=== PATIENT | female | born 1930 | race Caucasian/White ===

== ENCOUNTER 2017-06-19 08:18 | Emergency (ER) | payer MEDICARE, BC ==
[2017-06-19 09:16] LABS: #Lymphocytes 1.3 thou/uL (1.20-3.40); #Monocytes 0.6 thou/uL (0.11-0.59); #Neutrophils 10.4 thou/uL (1.40-6.50); %Basophils 0.3 % (0.0-1.0); %Eosinophils 0.4 % (0.0-10.0); %Lymphocytes 10.6 % (21.0-51.0); %Monocytes 5.2 % (0.0-10.0); Hematocrit 31.2 % (36.0-47.0); Mean Platelet Volume 7.1 fL (7.4-10.4); Red Blood Cell (RBC) Count 3.49 mill/uL (4.20-5.40); White Blood Cell (WBC) Count 12.4 thou/uL (4.8-10.8)
[2017-06-19 09:37] LABS: Troponin I Less than 0.010 ng/mL (< 0.028)
[2017-06-19 09:39] LABS: ALT (SGPT) 9 U/L (8-55); AST (SGOT) 31 U/L (5-34); Alkaline Phosphatase 89 U/L (40-150); Anion Gap 14 mmol/L (10-20); BUN (Urea Nitrogen) 19 mg/dL (9.8-20.1); Bilirubin, Total 0.3 mg/dL (0.2-1.2); Calc. Creatinine Clearance 0 mL/min (70-130); Calcium 9.1 mg/dL (7.8-10.44); Carbon Dioxide 22 mmol/L (23-31); Chloride 105 mmol/L (98-107); Estimated GFR-MDRD 62; Globulin 3.4 g/dL (2.4-3.5); Protein, Total 6.7 g/dL (6.0-8.3)
[2017-06-19] MEDS ORDERED: Labetalol HCl 100 MG/20 ML VIAL ONE (09:46)
--- NOTE | 2017-06-19 10:07 | RAD ---
THREE VIEWS RIGHT SHOULDER: History: Fall, injury, pain. Comparison: None. FINDINGS: Comminuted, mildly displaced fracture involving the subcapital region of the proximal right humerus. Fracture fragments are noted. No definite dislocation of the glenohumeral joint space. Old right ri b fractures are noted. There may be some age indeterminate fracture involving the lateral aspect of the right chest. Dedicated chest radiographic is recommended. IMPRESSION: 1. Proximal humerous fracture. 2. Possible right rib fractures. POS: [facility]
[2017-06-19 10:40] LABS: Bilirubin Negative (Negative); Blood, Urine Negative (Negative); Glucose, Urine (Dipstick) Negative (Negative); Ketone, Urine Negative (Negative); Nitrite Negative (Negative); Protein, Urine (Dipstick) Negative (Neg-Trace); Urobilinogen 0.2 mg/dL (0.2-1.0)
--- NOTE | 2017-06-19 10:51 | RAD ---
SINGLE VIEW OF THE CHEST: Comparison: 11-21-16 History: Right sided shoulder pain after fall. Chest pain. FINDINGS: Single view of the chest shows an enlarged but stable cardiomediastinal silhouette. The pacemaker is unchanged in position. Atelectasis is seen in the left lung base. There is no evidence of consolida tion, mass, or pleural effusion. There also appear to be remote healed right rib fractures. IMPRESSION: No evidence of acute cardiopulmonary disease. POS: [facility]
== END 2017-06-19 10:33 | disposition home or self-care (01) ==
LOC: ERS 08:18
DX: S42.201A Unspecified fracture of upper end of right humerus, initial encounter for closed fracture (principal); S22.31XA Fracture of one rib, right side, initial encounter for closed fracture; I10 Essential (primary) hypertension; F32.9 Major depressive disorder, single episode, unspecified; Z79.899 Other long term (current) drug therapy; W17.89XA Other fall from one level to another, initial encounter; Y92.009 Unspecified place in unspecified non-institutional (private) residence as the place of occurrence of the external cause
CPT/HCPCS: 51701; 71010; 80053; 81003; 82553; 83880; 84484; 85025; 93005; A4353

== ENCOUNTER 2017-11-17 08:10 | Inpatient (IN) | payer MEDICARE, BC ==
--- NOTE | 2017-11-17 08:55 | RAD ---
FRONTAL VIEW CHEST: Date: 11/17/17 COMPARISON: Previous day. CLINICAL HISTORY: Weakness. History of viral URI. FINDINGS: There is enlargement of the cardiac silhouette. Retrocardiac density related to hiatal hernia is seen . There is vascular congestion and interstitial prominence of each lung indicating edema. No addition al significant interval change. IMPRESSION: CHF. POS: [facility]
[2017-11-17 09:05] LABS: #Basophils 0.1 thou/uL (0.0-0.2); #Monocytes 0.6 thou/uL (0.11-0.59); %Basophils 0.8 % (0.0-1.0); %Eosinophils 0.3 % (0.0-10.0); %Lymphocytes 14.7 % (21.0-51.0); %Monocytes 9.5 % (0.0-10.0); %Neutrophils 74.7 % (42.0-75.0); Hemoglobin 9.1 g/dL (12.0-16.0); MDiff Complete? YES; Mean Corpuscular HGB CONC 31.8 g/dL (32.0-36.0); Mean Corpuscular Hemoglobin 23.3 pg (27.0-31.0); Mean Corpuscular Volume 73.3 fl (81.0-99.0); Mean Platelet Volume 8.7 fL (7.4-10.4); Microcytosis SLIGHT = 6-15 cells (100X) (0-5/hpf); Platelet Count 237 thou/uL (130-400); Poikilocytosis SLIGHT = 6-15 cells (100X) (0-5/hpf); RBC Distribution Width 18.3 % (11.5-14.5); White Blood Cell (WBC) Count 6.7 thou/uL (4.8-10.8)
[2017-11-17 09:15] LABS: ALT (SGPT) 7 U/L (8-55); AST (SGOT) 18 U/L (5-34); Albumin 3.5 g/dL (3.4-4.8); Alkaline Phosphatase 78 U/L (40-150); Anion Gap 12 mmol/L (10-20); BUN (Urea Nitrogen) 19 mg/dL (9.8-20.1); Bilirubin, Total 0.3 mg/dL (0.2-1.2); Calc. Creatinine Clearance 0 mL/min (70-130); Carbon Dioxide 26 mmol/L (23-31); Chloride 99 mmol/L (98-107); Estimated GFR-MDRD 56; Globulin 2.9 g/dL (2.4-3.5); Glucose 113 mg/dL (83-110); Potassium 3.4 mmol/L (3.5-5.1); Protein, Total 6.4 g/dL (6.0-8.3); Sodium 134 mmol/L (136-145)
[2017-11-17 09:18] LABS: CKMB 0.3 ng/mL (0-6.6); Troponin I Less than 0.010 ng/mL (< 0.028)
[2017-11-17] MEDS ORDERED: Furosemide 40 MG/4 ML VIAL ONE (09:58)
[2017-11-17 11:49] LABS: Troponin I 0.023 ng/mL (< 0.028)
--- NOTE | 2017-11-17 11:55 | PDOC.FPRHP ---
- History of Present Illness Chief Complaint: cough, sob, low grade temperature History of Present Illness: 87 yo F w/ pmh of htn, hld, pacemaker placement, osteoporosis who presents with 2 day h/o of dry cough and low grade temperature per family. They report has developed a cough and "fever" with maximum noted to be 100.1. They deny nvdc, complaints of dysuria. They do describe occasional episodes of syncope vs unresponsiveness that last anywhere from 30-90seconds. Deny trauma. Pt denies cp , sob, congestion. She was seen the day prior in an urgent care and had a chest xray at that time which was negative. Nonetheless, she was prescribed doxycycline for pneumonia. On that visit she had no cxr evidence of pneumonia and no fever or white count. Today she has no cxr evidence of pneumonia and cxr report describes changes consistent with CHF. ED Course: Lasix 40, K+40mEq - Allergies/Adverse Reactions Allergies Allergy/AdvReac Type Severity Reaction Status Date / Time Sulfa (Sulfonamide Allergy Severe Hives Verified 11/20/16 14:58 Antibiotics) - Home Medications Medication Instructions Recorded Confirmed Type Carvedilol Phosphate [Coreg CR] 40 mg PO QAM 12/07/13 11/17/17 History Losartan Potassium 25 mg PO QAM 09/05/16 11/17/17 History Amitriptyline HCl [Elavil] 25 mg PO HS 11/05/16 11/17/17 History Aspirin [Aspirin Chewable Tablet] 81 mg PO QAM 11/05/16 11/17/17 History Calcium Carbonate [Calcium] 1,200 mg PO DAILY 11/05/16 11/17/17 History Multivit-Min/Iron/Folic/Lutein 1 tablet PO DAILY 11/05/16 11/17/17 History [Centrum Silver Women] buPROPion HCl 100 mg PO DAILY 11/17/17 11/17/17 History - History PMHx:Mixed hld, osteoporosis, htn, pacemaker PSHx: ORIF rt hip FHx:NA Social: Denies alcohol, tobacco and drug use - Review of Systems General: denies: fever/chills, fatigue ENT: denies: nasal congestion, rhinorrhea Respiratory: reports: cough. denies: congestion, shortness of breath Cardiovascular: reports: edema. denies: chest pain, palpitation Gastrointestinal: denies: nausea, vomiting, diarrhea, constipation, abdominal pain Genitourinary: denies: incontinence, dysuria Skin: denies: rashes Musculoskeletal: denies: pain, arthritis/arthralgias Neurological: reports: syncope. denies: numbness, weakness - Vital signs BP: 118/71 HR: 90 RR: 16-17 Tmax: 98.4 Pox: 98% on 2LNC Wt: 67Kg - Physical Exam Constitutional: NAD, well developed HEENT: normocephalic and atraumatic, PERRLA, EOMI, conjunctiva clear, grossly normal vision, grossly normal hearing, MMM Neck: supple, FROM, trachea midline Heart: RRR, normal S1/S2, no murmurs/rubs/gallops, pulses present, no edema Lungs: CTAB, no respiratory distress, good air movement, other (scattered rales) -Lungs: diminished bases Abdomen: soft, non-tender, bowel sounds present, no masses/distention, no hernias Musculoskeletal: normal structure, ROM grossly normal Neurological: no focal deficit, normal sensation Skin: no rash/lesions, capillary refill <2 seconds Heme/Lymphatic: no unusual bruising or bleeding, no purpura FMR H&P: Results - Labs Result Diagrams: 11/17/17 08:30 11/17/17 08:30 Lab results: WBC 6.7 thou/uL (4.8-10.8) 11/17/17 08:30 Hgb 9.1 g/dL (12.0-16.0) L 11/17/17 08:30 Hct 28.6 % (36.0-47.0) L 11/17/17 08:30 MCV 73.3 fl (81.0-99.0) L 11/17/17 08:30 Plt Count 237 thou/uL (130-400) 11/17/17 08:30 Neutrophils % 74.7 % (42.0-75.0) 11/17/17 08:30 Sodium 134 mmol/L (136-145) L 11/17/17 08:30 Potassium 3.4 mmol/L (3.5-5.1) L 11/17/17 08:30 Chloride 99 mmol/L (98-107) 11/17/17 08:30 Carbon Dioxide 26 mmol/L (23-31) 11/17/17 08:30 BUN 19 mg/dL (9.8-20.1) 11/17/17 08:30 Creatinine 0.94 mg/dL (0.6-1.1) 11/17/17 08:30 Glucose 113 mg/dL (83-110) H 11/17/17 08:30 Calcium 9.0 mg/dL (7.8-10.44) 11/17/17 08:30 Total Bilirubin 0.3 mg/dL (0.2-1.2) 11/17/17 08:30 AST 18 U/L (5-34) 11/17/17 08:30 ALT 7 U/L (8-55) L 11/17/17 08:30 Alkaline Phosphatase 78 U/L (40-150) 11/17/17 08:30 CK-MB (CK-2) 0.3 ng/mL (0-6.6) 11/17/17 08:30 B-Natriuretic Peptide 421.5 pg/mL (0-100) H 11/17/17 08:30 Serum Total Protein 6.4 g/dL (6.0-8.3) 11/17/17 08:30 Albumin 3.5 g/dL (3.4-4.8) 11/17/17 08:30 - EKG Interpretation EKG: sinus arrythmia, pvcs, rate 79, nonspecific st changes - Radiology Interpretation Chest x-ray Status: report reviewed by me Additional comment: imaging consistent with CHF changes FMR H&P: A/P - Problem List (1) Pulmonary edema Current Visit: Yes Status: Acute Code(s): J81.1 - CHRONIC PULMONARY EDEMA (2) Elevated brain natriuretic peptide (BNP) level Current Visit: Yes Status: Acute Code(s): R79.89 - OTHER SPECIFIED ABNORMAL FINDINGS OF BLOOD CHEMISTRY (3) HTN (hypertension) Current Visit: Yes Status: Acute Code(s): I10 - ESSENTIAL (PRIMARY) HYPERTENSION (4) Pre-syncope Current Visit: Yes Status: Acute (5) Bronchitis Current Visit: Yes Status: Acute Code(s): J40 - BRONCHITIS, NOT SPECIFIED ACUTE OR CHRONIC - Plan 1)Pulm edema: - admit tele -lasix 20mg BID IV -strict Is/Os -daily weights -in light of negative cxr, no white count, negative lactic acid and negative procalcitonin will treat for presumed volume overload/pulmonary edema. Additionally check Ur step and legionella ag -cont to monitor vitals, maintain sats >92%, O2 PRN 2)Elevated BNP -possibly 2/2 CHF, above prior levels of 200s, currently 420 with evidence of pulm edema -consider am cards consult -troponins negative 3)HTN: -home meds 4)Osteoporosis: -home meds 5)PPX: SCds and pepcid for dvt and GI ppx 6)Full code: pts daughter reports pt is full code. Discussed with family. 7) Bronchitis: -vs cough 2/2 CHF 8) Presyncopal vs syncope: -consider am cards consult -possibly 2/2 intravascular depletion - admit tele Disposition/LOS: stable>/= 2 days FMR H&P: Upper Level - Pertinent history 87yo CF with PMHx HTN, memory loss, and symptomatic bradycardia s/p pacemaker presented with 2 days nonproductive cough and low grade temperature elevations per family. Went to urgent care yesterday with normal CXR, and neg flu/strep swabs. Was given doxycycline for suspected bronchitis. This AM, pt seemed more weak than normal per family. Had difficulty standing up so prepared to take to ED when she had a 90 second episode on toilet where she was less responsive and sleepy. She was at baseline mentation on awakening. She has hx of syncopal episodes with workup finding severe bradycardia leading to pacemaker placement. In ED, CXR and elevated BNP suggested fluid overload so admitted for diuresis and evaluation. - Pertinent findings Gen: NAD, A&Ox2 Heart: RRR, normal S1/S2, no murmurs Lungs: diffuse coarse rales bilaterally with decreased breath sounds at bases, no rhonchi/wheezing, no increased WOB Abd: soft, NT/ND Ext: trace pedal edema BLE Skin: no rash, cap refill <2 secs Last ECHO 10/26 showing EF 50-55% with mildly dilated LA, mod TR, mild MR. - Plan Date/Time: 11/17/17 1151 1. Pulmonary edema. With elevated BNP (421) and sign of pulm edema, will repeat ECHO to reevaluate cardiac function. Last ECHO 10/26 showed EF 50-55% with mildly dilated LA, mod TR, mild MR. No proof of hypoxia although O2 91% at home. Pt denies symptoms although memory issues at baseline. Diuresis with Lasix and repeat ECHO in AM. Monitor BMPs. Pending ECHO results, consider cards consult. Admit to telemetry for likely 1-2 day stay. 2. Elevated BNP. See #1. 3. Acute bronchitis. Viral etiology likely. Family requesting continuation of abx in light of no fevers, neg CXR x2, and normal WBC count. Plan for procalcitonin, strep pneumo and legionella antigen, and lactate to better assess risk of bacterial etiology. If negative, plan to stop antibiotics. Discussed rationale with family who understood. 4. HTN. Home meds. Mildly elevated in ED although family states her normal in healthcare settings should be >200 systolic due to her white coat HTN so were worried about her overall picture. Monitor. 5. Syncopal episode. Sounds fairly consistent with vasovagal syncope although hx of arrhythmias and pacemaker placement may suggest further rhythm issues could be to blame. Will discuss more with family tomorrow about frequency of recent episodes to see if further evaluation needed. Pt appears overall intravascularly depleted which also supports less serious syncopal etiology. 6. Dysthymia. Continue amitriptyline and Wellbutrin. I, Giorgi Gutierrez, have evaluated this patient and agree with findings/plan as outlined by architecture internship resident. Pertinent changes/additions are listed here. Attending Addendum - Attending Addendum Date/Time: 11/17/17 6019 I personally evaluated the patient and discussed the management with Dr. Szymanski and Matt. I agree with and repeated the History, Examination, Assessment and Plan documented above with any addition or exceptions noted below. She did not endorse syncope for me. Orthostatics, echo if none recent, additional history in the AM.
[2017-11-17] MEDS ORDERED: Acetaminophen 325 MG TAB PO PRN (14:21)
[2017-11-17] MEDS ORDERED: Ondansetron ODT 4 MG TAB PO PRN (14:21)
[2017-11-17 15:50] LABS: Lactic Acid 0.9 mmol/L (0.5-2.2)
[2017-11-17 15:59] LABS: Troponin I Less than 0.010 ng/mL (< 0.028)
[2017-11-17] MEDS ORDERED: Potassium Chloride 20 MEQ TAB PO SCH (17:00)
[2017-11-17] MEDS ORDERED: Furosemide 20 MG/2 ML VIAL SLOW IVP SCH (17:00)
[2017-11-17 18:57] VITALS: BMI 23.4
[2017-11-17] MEDS ORDERED: Prevnar 13-Val Conj/PF 0.5 ML SYRINGE IM ONE (20:00)
[2017-11-17] MEDS: Famotidine 20 MG TAB PO SCH (21:54)
[2017-11-17] MEDS: Amitriptyline HCl 25 MG TAB PO SCH (21:54)
[2017-11-17] MEDS: Carvedilol 6.25 MG TAB PO SCH (21:54)
[2017-11-18 05:19] LABS: #Lymphocytes 1.5 thou/uL (1.20-3.40); #Monocytes 0.7 thou/uL (0.11-0.59); #Neutrophils 3.6 thou/uL (1.40-6.50); %Basophils 0.4 % (0.0-1.0); %Eosinophils 0.3 % (0.0-10.0); %Lymphocytes 25.3 % (21.0-51.0); %Monocytes 12.3 % (0.0-10.0); %Neutrophils 61.6 % (42.0-75.0); Hemoglobin 8.8 g/dL (12.0-16.0); Mean Corpuscular HGB CONC 31.6 g/dL (32.0-36.0); Mean Corpuscular Hemoglobin 23.3 pg (27.0-31.0); Mean Corpuscular Volume 73.8 fl (81.0-99.0); Platelet Count 218 thou/uL (130-400); RBC Distribution Width 18.4 % (11.5-14.5); Red Blood Cell (RBC) Count 3.78 mill/uL (4.20-5.40); White Blood Cell (WBC) Count 5.8 thou/uL (4.8-10.8)
[2017-11-18 05:41] LABS: Anion Gap 12 mmol/L (10-20); BUN (Urea Nitrogen) 23 mg/dL (9.8-20.1); Calc. Creatinine Clearance 39 mL/min (70-130); Calcium 8.8 mg/dL (7.8-10.44); Carbon Dioxide 28 mmol/L (23-31); Chloride 97 mmol/L (98-107); Estimated GFR-MDRD 52; Glucose 91 mg/dL (83-110); Potassium 3.6 mmol/L (3.5-5.1); Sodium 133 mmol/L (136-145)
--- NOTE | 2017-11-18 05:55 | PDOC.FM ---
- Subjective Subjective: Pt resting upon entering the room. Pt resting. Denies any acute events overnight. Denies any chest pain or SOB. Pt reports breathing doing well. Denies any fever or chills. - Objective Vital Signs & Weight: Vital Signs (12 hours) Temp Pulse Resp BP BP Pulse Ox 11/18/17 05:37 96 11/18/17 04:00 97.5 F L 67 20 161/74 H 11/18/17 00:00 98.9 F 76 18 145/69 H 97 11/17/17 21:54 182/84 H 11/17/17 20:08 98.7 F 89 18 182/84 H 97 Weight Weight 63.503 kg I&O: 11/16/17 11/17/17 11/18/17 06:59 06:59 06:59 Output Total 1500 Balance -1500 Result Diagrams: 11/18/17 04:58 11/18/17 04:58 EKG Reviewed by me: Yes Radiology Reviewed by me: Yes (CHF) <Nash Benavidez - Last Filed: 11/18/17 08:14> - Objective Vital Signs & Weight: Vital Signs (12 hours) Temp Pulse Resp BP BP Pulse Ox 11/18/17 16:01 97.1 F L 70 18 118/62 99 11/18/17 14:10 73 129/65 11/18/17 11:00 97.9 F 68 18 187/87 H 97 11/18/17 08:57 173/131 H 11/18/17 07:28 96.4 F L 70 22 H 173/131 H 100 Weight Weight 63.503 kg I&O: 11/17/17 11/18/17 11/19/17 06:59 06:59 06:59 Intake Total 220 Output Total 1500 Balance -1280 Result Diagrams: 11/18/17 04:58 11/18/17 04:58 <Renetta Jeter - Last Filed: 11/18/17 18:48> Phys Exam - Physical Examination Constitutional: NAD HEENT: PERRLA, moist MMs Neck: no nodes, no JVD, supple, full ROM scattered rhonchi, goot air movement Cardiovascular: RRR, no significant murmur, no rub Gastrointestinal: soft, non-tender, no distention, positive bowel sounds Musculoskeletal: edema present trace edema Neurological: normal sensation, moves all 4 limbs Lymphatic: no nodes Psychiatric: normal affect Skin: no rash, normal turgor, cap refill <2 seconds <Nash Benavidez - Last Filed: 11/18/17 08:14> Dx/Plan (1) Bronchitis Code(s): J40 - BRONCHITIS, NOT SPECIFIED ACUTE OR CHRONIC Status: Acute (2) Elevated brain natriuretic peptide (BNP) level Code(s): R79.89 - OTHER SPECIFIED ABNORMAL FINDINGS OF BLOOD CHEMISTRY Status : Acute (3) HTN (hypertension) Code(s): I10 - ESSENTIAL (PRIMARY) HYPERTENSION Status: Acute (4) Pulmonary edema Code(s): J81.1 - CHRONIC PULMONARY EDEMA Status: Acute (5) Diastolic CHF, chronic Code(s): I50.32 - CHRONIC DIASTOLIC (CONGESTIVE) HEART FAILURE Status: Acute (6) Essential (primary) hypertension Code(s): I10 - ESSENTIAL (PRIMARY) HYPERTENSION Status: Acute (7) Hyperlipidemia Code(s): E78.5 - HYPERLIPIDEMIA, UNSPECIFIED Status: Acute (8) Microcytic anemia Code(s): D50.9 - IRON DEFICIENCY ANEMIA, UNSPECIFIED Status: Acute - Plan Plan: 1)Pulm edema: -lasix 20mg BID IV -strict Is/Os -daily weights -in light of negative cxr, no white count, negative lactic acid and negative procalcitonin will treat for presumed volume overload/pulmonary edema. Additionally check Ur step and legionella ag -cont to monitor vitals, maintain sats >92%, O2 PRN 2)Elevated BNP -possibly 2/2 CHF, above prior levels of 200s, currently 420 with evidence of pulm edema -troponins negative 3)HTN: -home meds -BP stable. Continue to monitor and adjust as needed 4)Osteoporosis: -home meds 5)PPX: SCds and pepcid for dvt and GI ppx 6)Full code: pts daughter reports pt is full code. Discussed with family. 7) Bronchitis: -vs cough 2/2 CHF -supportive care 8) Presyncopal vs syncope: -consider am cards consult -possibly 2/2 intravascular depletion -Has microcytic anemia, will check iron panel at this time 9) Microcytic anemia -Will check iron panel this am. Hgb 8.8 and MCV low -Iron low, will start replacement today <Nash Benavidez - Last Filed: 11/18/17 08:14> Attending Addendum - Attending Addendum Date/Time: 11/18/17 184 I personally evaluated the patient and discussed the management with Dr. Benavidez. I agree with the History, Examination, Assessment and Plan documented above with any addition or exceptions noted below. The patient clinically appears to have pulmonary edema likley from chf exac. Echo is pending. Continue lasix. Iron low, will start replacement. Adjusting bowel regimen. <Renetta Jeter - Last Filed: 11/18/17 18:48>
[2017-11-18] MEDS: Furosemide 20 MG/2 ML VIAL SLOW IVP SCH ×2 (06:18→14:10)
[2017-11-18 06:42] LABS: Iron 15 ug/dL (50-170); Iron Binding Capacity, Total 315 mcg/dL (265-497)
[2017-11-18] MEDS: Carvedilol 6.25 MG TAB PO SCH ×2 (08:57→21:02)
[2017-11-18] MEDS: Famotidine 20 MG TAB PO SCH (08:58)
[2017-11-18] MEDS: Losartan 25 MG TAB PO SCH (08:58)
[2017-11-18] MEDS: Ferrous Sulfate 325 MG TAB PO SCH ×2 (08:58→09:08)
[2017-11-18] MEDS: Calcium Carbonate 600 MG TAB PO SCH (08:58)
[2017-11-18] MEDS: Multivit, Therapeutic 1 TAB PO SCH (08:59)
[2017-11-18] MEDS: buPROPion HCl 100 MG TAB PO SCH (09:03)
[2017-11-18] MEDS ORDERED: Labetalol HCl 100 MG/20 ML VIAL SLOW IVP PRN (13:10)
[2017-11-18 15:40] LABS: Legionella Urinary Ag Negative (Negative); Strep pneumo Urine Ag NEGATIVE (NEGATIVE)
[2017-11-18] MEDS: Amitriptyline HCl 25 MG TAB PO SCH (21:02)
--- NOTE | 2017-11-19 00:22 | CON ---
DATE OF CONSULTATION: 11/18/2017 HISTORY: Malou Lipscomb is an 87-year-old white female, patient of Dr. Huynh. In 11/2016, she underwent pacemaker placement after LINQ implantable loop recorder revealed 5 seconds of asystole. She now presented to the emergency room complaining of cough for 2 days, low-grade temperature. Now, she also stated that she continued to have unresponsive episodes that last anywhere from 30-90 seconds. Ms. Lipscomb is unable to give me any specific history in regard to this, but she thinks she may have had a spell when she was on the commode today. She denies any chest discomfort or shortness of breath. PAST MEDICAL HISTORY: Hypertension, sick-sinus syndrome, pacemaker placement. OPERATIONS: ORIF of the right hip. MEDICATIONS: Carvedilol 40 q.a.m., losartan 25 q.a.m., amitriptyline 25 at bedtime, aspirin 81 daily, calcium carbonate 1200 mg daily, multivitamin, and bupropion 100 mg daily. ALLERGIES: SULFA. SOCIAL HISTORY: She does not smoke or drink. REVIEW OF SYSTEMS: Twelve-point review of systems, otherwise unremarkable. PHYSICAL EXAMINATION: VITAL SIGNS: 140/67, pulse is 70. HEENT: PERRL. NECK: Supple. CHEST: Clear. CARDIAC: S1, S2 normal without any S3, S4 or murmurs. ABDOMEN: Normal bowel sounds without tenderness or organomegaly. EXTREMITIES: Revealed no clubbing, cyanosis, or edema. NEUROLOGIC: Grossly intact. LABORATORY DATA: EKG reveals sinus rhythm with sinus arrhythmia. Chest x-ray reveals continued good placement of pacemaker leads and cardiomegaly and hiatal hernia. Hemoglobin 8.8, hematocrit 27.9, white count 5800, platelets 218,000. Sodium 133, potassium 3.6, chloride 97, carbon dioxide 28, BUN 23, creatinine 1.00. Cardiac enzymes were unremarkable. BNP 421.5. IMPRESSION: 1. Questionable episodes of unresponsiveness versus syncope at home. 2. Hypertension. 3. History of paroxysmal atrial fibrillation. 4. Pacemaker placement. PLAN: I have contacted [employer] to interrogate the device to make sure there was normal function as well as that she has not been having episodes of atrial fibrillation. Dr. Huynh resume her care in the morning. [facility]
[2017-11-19] MEDS: Furosemide 20 MG/2 ML VIAL SLOW IVP SCH (05:38)
[2017-11-19 05:48] LABS: #Eosinphils 0.2 thou/uL (0.0-0.7); #Lymphocytes 1.5 thou/uL (1.20-3.40); #Monocytes 0.6 thou/uL (0.11-0.59); #Neutrophils 3.8 thou/uL (1.40-6.50); %Basophils 0.6 % (0.0-1.0); %Eosinophils 3.3 % (0.0-10.0); %Lymphocytes 24.1 % (21.0-51.0); %Monocytes 10.4 % (0.0-10.0); %Neutrophils 61.6 % (42.0-75.0); Hemoglobin 8.9 g/dL (12.0-16.0); Mean Corpuscular HGB CONC 31.6 g/dL (32.0-36.0); Mean Corpuscular Hemoglobin 23.3 pg (27.0-31.0); Mean Corpuscular Volume 73.7 fl (81.0-99.0); Mean Platelet Volume 8.6 fL (7.4-10.4); Platelet Count 229 thou/uL (130-400); Red Blood Cell (RBC) Count 3.81 mill/uL (4.20-5.40); White Blood Cell (WBC) Count 6.2 thou/uL (4.8-10.8)
[2017-11-19 05:57] LABS: Anion Gap 8 mmol/L (10-20); BUN (Urea Nitrogen) 29 mg/dL (9.8-20.1); Calc. Creatinine Clearance 35 mL/min (70-130); Calcium 9.2 mg/dL (7.8-10.44); Carbon Dioxide 31 mmol/L (23-31); Chloride 97 mmol/L (98-107); Estimated GFR-MDRD 47; Glucose 84 mg/dL (83-110); Potassium 3.6 mmol/L (3.5-5.1); Sodium 132 mmol/L (136-145)
--- NOTE | 2017-11-19 06:39 | PDOC.FM ---
- Subjective Subjective: Pt reports doing well this morning. Denies any fever or chills. Denies any SOB. Denies any urinary symptoms or having abdominal pain like she wasn't emptying her bladder. Denies any acute events overnight. Pt reports pain being well controlled. No other concerns or complaints at this time. - Objective MAR Reviewed: Yes Vital Signs & Weight: Vital Signs (12 hours) Temp Pulse Resp BP BP Pulse Ox 11/19/17 04:00 97.0 F L 66 16 108/55 L 98 11/18/17 21:02 140/67 11/18/17 20:00 97.9 F 69 18 Weight Weight 63.503 kg I&O: 11/17/17 11/18/17 11/19/17 06:59 06:59 06:59 Intake Total 220 600 Output Total 1500 4811 Balance -1280 4211 Result Diagrams: 11/19/17 05:35 11/19/17 05:35 EKG Reviewed by me: Yes Radiology Reviewed by me: Yes Radiology: ECHO showed EF 50-55%. Diastolic Dysfunction <Nash Benavidez - Last Filed: 11/19/17 08:24> - Objective Vital Signs & Weight: Vital Signs (12 hours) Pulse BP 11/19/17 16:51 72 115/67 11/19/17 14:42 74 132/61 Result Diagrams: 11/19/17 05:35 11/19/17 05:35 <Renetta Jeter - Last Filed: 11/19/17 18:04> Phys Exam - Physical Examination Constitutional: NAD HEENT: PERRLA, moist MMs Neck: no nodes, no JVD, supple, full ROM Respiratory: no wheezing, no rhonchi, clear to auscultation bilateral Cardiovascular: RRR, no significant murmur Gastrointestinal: soft, non-tender, no distention, positive bowel sounds Musculoskeletal: no edema, pulses present Neurological: non-focal, normal sensation Lymphatic: no nodes Psychiatric: normal affect Skin: no rash, normal turgor, cap refill <2 seconds <Nash Benavidez - Last Filed: 11/19/17 08:24> Dx/Plan (1) Bronchitis Code(s): J40 - BRONCHITIS, NOT SPECIFIED ACUTE OR CHRONIC Status: Acute (2) Elevated brain natriuretic peptide (BNP) level Code(s): R79.89 - OTHER SPECIFIED ABNORMAL FINDINGS OF BLOOD CHEMISTRY Status : Acute (3) HTN (hypertension) Code(s): I10 - ESSENTIAL (PRIMARY) HYPERTENSION Status: Acute (4) Pulmonary edema Code(s): J81.1 - CHRONIC PULMONARY EDEMA Status: Acute (5) Diastolic CHF, chronic Code(s): I50.32 - CHRONIC DIASTOLIC (CONGESTIVE) HEART FAILURE Status: Acute (6) Essential (primary) hypertension Code(s): I10 - ESSENTIAL (PRIMARY) HYPERTENSION Status: Acute (7) Hyperlipidemia Code(s): E78.5 - HYPERLIPIDEMIA, UNSPECIFIED Status: Acute (8) Microcytic anemia Code(s): D50.9 - IRON DEFICIENCY ANEMIA, UNSPECIFIED Status: Acute - Plan Plan: 1)Pulm edema: -lasix 20mg BID IV, may switch to oral today. -strict Is/Os -daily weights -in light of negative cxr, no white count, negative lactic acid and negative procalcitonin will treat for presumed volume overload/pulmonary edema. Ur strep/ legionella negative -cont to monitor vitals, maintain sats >92%, O2 PRN. Will wean off oxygen. O2 sats been stable. Home O2 assessment. 2)Elevated BNP -possibly 2/2 CHF, above prior levels of 200s, currently 420 with evidence of pulm edema -troponins negative -Cardiology consulted-Dr. Huynh- Will follow recommendations -ECHO shows preserved EF with I/III diastolic dysfunction. will want to transition to oral lasix -Fluid restriction 3)HTN: -home meds -BP stable. Continue to monitor and adjust as needed 4)Osteoporosis: -home meds 5)PPX: SCds and pepcid for dvt and GI ppx 6)Full code: pts daughter reports pt is full code. Discussed with family. 7) Bronchitis: -vs cough 2/2 CHF -supportive care 8) Presyncopal vs syncope: -possibly 2/2 intravascular depletion -Has iron defecient microcytic anemia, replacing iron. Possibly cause -Cardiology is going to assess pacemaker, no sign of arrythmia 9) Microcytic anemia Hgb 8.9 and MCV low -Iron low,replacing at this time. -Miralax for constipation side effect <Nash Benavidez - Last Filed: 11/19/17 08:24> Attending Addendum - Attending Addendum Date/Time: 11/19/171801 I personally evaluated the patient and discussed the management with Dr. Benavidez. I agree with the History, Examination, Assessment and Plan documented above with any addition or exceptions noted below. The patient became hypotensive this morning during our rounds with systolics in the 70's. Pt was placed in trendelenberg. We are giving a 500 ml bolus and will reassess for more fluid if needed. She is awake and responding to questions appropriately. There have been no changes in her bp meds. She did receive lasix this morning but other meds were held. She also has new urinary retention. Will stop amitriptyline to see if this helps. <Renetta Jeter - Last Filed: 11/19/17 18:04>
[2017-11-19] MEDS ORDERED: Ferrous Sulfate 325 MG TAB PO SCH (08:00)
[2017-11-19] MEDS ORDERED: CALCIUM CARBONATE PO SCH (09:00)
[2017-11-19] MEDS: buPROPion HCl 100 MG TAB PO SCH (09:27)
[2017-11-19] MEDS: Calcium Carbonate 600 MG TAB PO SCH (09:27)
[2017-11-19] MEDS: Multivit, Therapeutic 1 TAB PO SCH (09:27)
[2017-11-19] MEDS: Ferrous Sulfate 325 MG TAB PO SCH (09:29)
[2017-11-19] MEDS: Calcium Carbonate 500 MG ChewTAB PO SCH (09:29)
[2017-11-19] MEDS: Polyethylene Glycol 3350 17 GM Packet PO SCH (09:31)
[2017-11-19] MEDS: Carvedilol 6.25 MG TAB PO SCH ×2 (09:57→21:51)
[2017-11-19] MEDS: Losartan 25 MG TAB PO SCH (09:57)
[2017-11-19] MEDS: Famotidine 20 MG TAB PO SCH (10:32)
[2017-11-19] MEDS ORDERED: Sodium Chloride 0.9% 500 ML IVPB SCH (11:45)
--- NOTE | 2017-11-19 13:21 | PDOC.CTH ---
<Eleni Machado - Last Filed: 11/19/17 13:19> Cardiology Progress Note - Subjective The pt seen and examined. No overnight events. No cardiac complaints. She is very lethargic, but alarted and oriented x3. - Objective Vital Signs Temp Pulse Resp BP Pulse Ox 11/19/17 11:15 98.7 F 66 17 128/60 96 11/19/17 08:00 97.4 F L 68 17 11/19/17 07:36 97.4 F L 68 17 114/60 92 L 11/19/17 04:00 97.0 F L 66 16 108/55 L 98 Weight 140 lb 11/18/17 11/19/17 11/20/17 06:59 06:59 06:59 Intake Total 220 600 Output Total 1500 4811 Balance -8680 -6801 - Physical Examination General/Neuro: alert & oriented x3 Neck: no JVD present Lungs: CTA (diminished at bases) Heart: RRR Abdomen: soft Extremities: other: (No edema) - Telemetry Telemetry Rhythm: SR - Labs Result Diagrams: 11/19/17 05:35 11/19/17 05:35 Troponin/CKMB CK-MB (CK-2) 0.3 ng/mL (0-6.6) 11/17/17 08:30 Troponin I Less than 0.010 ng/mL (< 0.028) 11/17/17 15:22 - Assessment/Plan 1. Hx of Syncopal episodes - PM interrogation showed no arrhythmias or pulses. 2. Acute on Chronic diastolic HF - Echo on 11/18/17 showed EF 50-55%, grade I diastolic dysfunction, trace MR, mild AR, and mild-mod TR. 3. Hypotension - BP was down to 70s this AM. Lasix is on hold and NS fluid bolus was given to the pt this AM. 4. Paroxysmal AFib - Remains in SR. On BBlocker and ASA 81mg qd; Cont. to monitor 5. Hx of PM - PM interrogation showed normal with no arrhythmias. 6. amenia - On Iron supplement; managed by PCP MARY ANN reviewed Review of Systems - Review of Systems Constitutional: reports: no symptoms reported EENTM: reports: no symptoms reported Respiratory: reports: no symptoms reported Cardiac (ROS): reports: no symptoms reported ABD/GI: reports: no symptoms reported : reports: no symptoms reported <Dipak Huynh - Last Filed: 11/19/17 17:39> Cardiology Progress Note - Objective Vital Signs Pulse BP 11/19/17 16:51 72 115/67 11/19/17 14:42 74 132/61 - Labs Result Diagrams: 11/19/17 05:35 11/19/17 05:35 Troponin/CKMB CK-MB (CK-2) 0.3 ng/mL (0-6.6) 11/17/17 08:30 Troponin I Less than 0.010 ng/mL (< 0.028) 11/17/17 15:22 - Assessment/Plan Pt. seen and eval. by me. I agree with the A/P by the FELLMONGERY WORKER. She is likely overdiuresed at this time. I suspect that she has orthostatic problems at home. The EF is WNL and the diastolic dysfunction is mild. Hold diuretics. Bronchitis is present , suggest repeat CXR. Hopefully home in 1-2 days.
[2017-11-19] MEDS: Amitriptyline HCl 25 MG TAB PO SCH ×2 (21:53→22:00)
[2017-11-20] MEDS ORDERED: hydrALAZINE 20 MG/ML VIAL SLOW IVP PRN (01:27)
[2017-11-20 06:04] LABS: #Eosinphils 0.1 thou/uL (0.0-0.7); #Lymphocytes 1.9 thou/uL (1.20-3.40); #Monocytes 0.7 thou/uL (0.11-0.59); #Neutrophils 3.9 thou/uL (1.40-6.50); %Basophils 0.3 % (0.0-1.0); %Eosinophils 1.4 % (0.0-10.0); %Lymphocytes 28.2 % (21.0-51.0); %Monocytes 10.2 % (0.0-10.0); Hemoglobin 8.2 g/dL (12.0-16.0); Mean Corpuscular HGB CONC 30.9 g/dL (32.0-36.0); Mean Corpuscular Hemoglobin 22.9 pg (27.0-31.0); Mean Corpuscular Volume 74.1 fl (81.0-99.0); Mean Platelet Volume 8.7 fL (7.4-10.4); Platelet Count 232 thou/uL (130-400); RBC Distribution Width 17.9 % (11.5-14.5); Red Blood Cell (RBC) Count 3.58 mill/uL (4.20-5.40); White Blood Cell (WBC) Count 6.6 thou/uL (4.8-10.8)
[2017-11-20 06:28] LABS: Anion Gap 11 mmol/L (10-20); BUN (Urea Nitrogen) 27 mg/dL (9.8-20.1); Calc. Creatinine Clearance 39 mL/min (70-130); Calcium 9.2 mg/dL (7.8-10.44); Carbon Dioxide 30 mmol/L (23-31); Chloride 98 mmol/L (98-107); Estimated GFR-MDRD 52; Glucose 84 mg/dL (83-110); Potassium 3.3 mmol/L (3.5-5.1); Sodium 136 mmol/L (136-145)
--- NOTE | 2017-11-20 08:26 | PDOC.FM ---
- Subjective Subjective: Pt sleeping upon entering the room. Denies any acute events overnight. Denies any SOB or chest pain. Denies any problems at this time. Denies any dizziness or lightheadness. No other concerns at this time. She did not have oxygen on and checked her o2 sat and was 95% on RA. - Objective MAR Reviewed: Yes Vital Signs & Weight: Vital Signs (12 hours) Temp Pulse Resp BP Pulse Ox 11/20/17 04:00 98.1 F 63 18 117/64 95 11/20/17 00:00 62 18 135/61 Weight Weight 63.503 kg I&O: 11/19/17 11/20/17 11/21/17 06:59 06:59 06:59 Intake Total 1960 Output Total 1420 Balance 540 Result Diagrams: 11/20/17 04:54 11/20/17 04:53 Radiology Reviewed by me: Yes <Nash Benavidez - Last Filed: 11/20/17 08:24> - Objective Vital Signs & Weight: Vital Signs (12 hours) Temp Pulse Resp BP Pulse Ox 11/20/17 09:32 98.3 F 66 16 96 11/20/17 09:31 98.3 F 66 16 154/70 H 96 11/20/17 04:00 98.1 F 63 18 117/64 95 Weight Weight 63.503 kg I&O: 11/19/17 11/20/17 11/21/17 06:59 06:59 06:59 Intake Total 1960 240 Output Total 1420 500 Balance 540 -260 Result Diagrams: 11/20/17 04:54 11/20/17 04:53 <Renetta Jeter - Last Filed: 11/20/17 14:34> Phys Exam - Physical Examination Constitutional: NAD HEENT: PERRLA, moist MMs Neck: no nodes, no JVD some decreased breath sounds and mild rales noted Cardiovascular: RRR Gastrointestinal: soft, non-tender, no distention, positive bowel sounds Musculoskeletal: no edema, pulses present Neurological: non-focal, normal sensation Lymphatic: no nodes Psychiatric: normal affect Skin: no rash, normal turgor, cap refill <2 seconds <Nash Benavidez - Last Filed: 11/20/17 08:24> Dx/Plan (1) Bronchitis Code(s): J40 - BRONCHITIS, NOT SPECIFIED ACUTE OR CHRONIC Status: Acute (2) Elevated brain natriuretic peptide (BNP) level Code(s): R79.89 - OTHER SPECIFIED ABNORMAL FINDINGS OF BLOOD CHEMISTRY Status : Acute (3) HTN (hypertension) Code(s): I10 - ESSENTIAL (PRIMARY) HYPERTENSION Status: Acute (4) Pulmonary edema Code(s): J81.1 - CHRONIC PULMONARY EDEMA Status: Acute (5) Diastolic CHF, chronic Code(s): I50.32 - CHRONIC DIASTOLIC (CONGESTIVE) HEART FAILURE Status: Acute (6) Essential (primary) hypertension Code(s): I10 - ESSENTIAL (PRIMARY) HYPERTENSION Status: Acute (7) Hyperlipidemia Code(s): E78.5 - HYPERLIPIDEMIA, UNSPECIFIED Status: Acute (8) Microcytic anemia Code(s): D50.9 - IRON DEFICIENCY ANEMIA, UNSPECIFIED Status: Acute (9) Physical deconditioning Code(s): R53.81 - OTHER MALAISE Status: Acute - Plan Plan: 1)Pulm edema: -will switch to oral lasix 20 mg once daily. will monitor to lowering of BP -strict Is/Os -daily weights -in light of negative cxr, no white count, negative lactic acid and negative procalcitonin will treat for presumed volume overload/pulmonary edema. Ur strep/ legionella negative -cont to monitor vitals, maintain sats >92%, O2 PRN. Will wean off oxygen. O2 sats been stable. Home O2 assessment. 2)Elevated BNP - 2/2 CHF, above prior levels of 200s, currently 420 with evidence of pulm edema -troponins negative -Cardiology consulted-Dr. Huynh- Will follow recommendations -ECHO shows preserved EF with I/III diastolic dysfunction. will want to transition to oral lasix -Fluid restriction 3)HTN: -Yesterday got hypotensive and required a liter bolus. will hold home bp medications for now until bp comes up. Will continue diuresis with oral lasix. Continue to monitor and adjust as needed 4)Osteoporosis: -home meds 5)PPX: SCds and pepcid for dvt and GI ppx 6)Full code: pts daughter reports pt is full code. Discussed with family. 7) Bronchitis: -vs cough 2/2 CHF -supportive care 8) Presyncopal vs syncope: -possibly 2/2 intravascular depletion -Has iron defecient microcytic anemia, replacing iron. Possibly cause -Pacemaker functioning appropriately 9) Microcytic anemia Hgb 8.2and MCV low. Hgb lowering at this time. Will possibly check FOBT. -Iron low,replacing at this time. May need to increase to BID dose. Concern for constipation per family though. -Miralax for constipation side effect 10)Deconditioning -Pt been in bed and not moving around much -PT/OT consulted -Rehab screen pending <Nash Benavidez - Last Filed: 11/20/17 08:24> Attending Addendum - Attending Addendum Date/Time: 11/20/17 3592 I personally evaluated the patient and discussed the management with Dr. Benavidez. I agree with the History, Examination, Assessment and Plan documented above with any addition or exceptions noted below. Patient has been weaned off O2. Transitioning to po lasix today. BP meds still being held. She is alert and oriented x 3 during my exam. Still no signs of infection. Inpt rehab screen placed. Will try to get pt up to a chair. <Renetta Jeter - Last Filed: 11/20/17 14:34>
[2017-11-20] MEDS ORDERED: Furosemide 20 MG TAB PO SCH ×2 (09:00→20:25)
[2017-11-20] MEDS: Calcium Carbonate 500 MG ChewTAB PO SCH (09:37)
[2017-11-20] MEDS: Calcium Carbonate 600 MG TAB PO SCH (09:38)
[2017-11-20] MEDS: buPROPion HCl 100 MG TAB PO SCH (09:38)
[2017-11-20] MEDS: Multivit, Therapeutic 1 TAB PO SCH (09:38)
[2017-11-20] MEDS: Famotidine 20 MG TAB PO SCH (09:38)
[2017-11-20] MEDS: Polyethylene Glycol 3350 17 GM Packet PO SCH (09:40)
[2017-11-20] MEDS: Ferrous Sulfate 325 MG TAB PO SCH (09:40)
[2017-11-20] MEDS ORDERED: Potassium Chloride 20 MEQ TAB PO SCH (11:30)
--- NOTE | 2017-11-20 20:30 | PDOC.CTH ---
Cardiology Progress Note - Objective Vital Signs Temp Pulse Pulse Pulse Resp BP BP 11/20/17 16:20 98.2 F 74 15 11/20/17 13:24 81 75 111/55 L 131/64 11/20/17 09:32 98.3 F 66 16 11/20/17 09:31 98.3 F 66 16 BP BP BP BP Pulse Ox 11/20/17 16:20 143/64 H 160/76 H 123/53 L 138/63 94 L 11/20/17 13:24 11/20/17 09:32 96 11/20/17 09:31 154/70 H 96 Weight 140 lb 11/19/17 11/20/17 11/21/17 06:59 06:59 06:59 Intake Total 1960 1440 Output Total 1420 950 Balance 540 490 - Physical Examination General/Neuro: alert & oriented x3 Neck: no JVD present Lungs: other: (coase rhonchi bilat.) Heart: RRR Abdomen: soft - Labs Result Diagrams: 11/20/17 04:54 11/20/17 04:53 Troponin/CKMB CK-MB (CK-2) 0.3 ng/mL (0-6.6) 11/17/17 08:30 Troponin I Less than 0.010 ng/mL (< 0.028) 11/17/17 15:22 - Assessment/Plan 1. Hx of Syncopal episodes - PM interrogation showed no arrhythmias or pulses. 2. Acute on Chronic diastolic HF - Echo on 11/18/17 showed EF 50-55%, grade I diastolic dysfunction, trace MR, mild AR, and mild-mod TR. 3. Hypotension - BP was down to 70s yesterday. Improved today after holding diuretics.. Lasix is on hold and NS fluid bolus was given to the pt yesterday. 4. Paroxysmal AFib - Remains in SR. On BBlocker and ASA 81mg qd; Cont. to monitor 5. Hx of PM - PM interrogation showed normal with no arrhythmias. 6. amenia - On Iron supplement; managed by PCP 7. Bronchitis. The BNP was elevated but I would suspect that with diastolic dysfunction. She may be getting back to her baseline vol. status.
[2017-11-21 07:55] LABS: #Eosinphils 0.1 thou/uL (0.0-0.7); #Lymphocytes 1.6 thou/uL (1.20-3.40); #Monocytes 0.6 thou/uL (0.11-0.59); #Neutrophils 3.8 thou/uL (1.40-6.50); %Basophils 0.4 % (0.0-1.0); %Eosinophils 1.7 % (0.0-10.0); %Lymphocytes 26.6 % (21.0-51.0); %Monocytes 10.2 % (0.0-10.0); %Neutrophils 61.1 % (42.0-75.0); Hemoglobin 8.9 g/dL (12.0-16.0); Mean Corpuscular HGB CONC 30.3 g/dL (32.0-36.0); Mean Corpuscular Hemoglobin 23.6 pg (27.0-31.0); Mean Corpuscular Volume 77.7 fl (81.0-99.0); Mean Platelet Volume 8.7 fL (7.4-10.4); Platelet Count 265 thou/uL (130-400); RBC Distribution Width 18.1 % (11.5-14.5); Red Blood Cell (RBC) Count 3.76 mill/uL (4.20-5.40); White Blood Cell (WBC) Count 6.1 thou/uL (4.8-10.8)
[2017-11-21 08:00] LABS: Anion Gap 13 mmol/L (10-20); BUN (Urea Nitrogen) 17 mg/dL (9.8-20.1); Calc. Creatinine Clearance 47 mL/min (70-130); Calcium 9.2 mg/dL (7.8-10.44); Carbon Dioxide 25 mmol/L (23-31); Chloride 103 mmol/L (98-107); Estimated GFR-MDRD 66; Glucose 82 mg/dL (83-110); Potassium 4.5 mmol/L (3.5-5.1); Sodium 136 mmol/L (136-145)
--- NOTE | 2017-11-21 08:21 | RAD ---
SINGLE VIEW OF THE CHEST: COMPARISON: 11/17/17. HISTORY: CHF. FINDINGS: A single view of the chest shows an enlarged but stable cardiomediastinal silhouette. The pacemaker is unchanged in position. Increased interstitial lung markings are present. There is no evidence of consolidation, mass, or pleural effusion. Degenerative changes are seen in the spine. IMPRESSION: 1. No evidence of acute cardiopulmonary disease. 2. Cardiomegaly. POS: PAUL
--- NOTE | 2017-11-21 08:25 | PDOC.FM ---
- Subjective Subjective: Pt resting and sleeping when entering the room. Denies any pain. Reports doing fine. Denies any chest pain or SOB. Denies any acute events overnight. A&Ox3. Pt sat 95 percent on RA. No other concerns or complaints at this time - Objective MAR Reviewed: Yes Vital Signs & Weight: Vital Signs (12 hours) Temp Pulse Resp BP Pulse Ox 11/21/17 07:50 98.8 F 68 20 171/72 H 96 11/21/17 04:00 97.6 F 73 20 153/58 H 97 Weight Weight 63.14 kg I&O: 11/20/17 11/21/17 11/22/17 06:59 06:59 06:59 Intake Total 1960 1680 Output Total 1420 1450 Balance 540 230 Result Diagrams: 11/21/17 03:30 11/21/17 06:30 Radiology Reviewed by me: Yes (No acute process noted on 11/21 xray) <Nash Benavidez - Last Filed: 11/21/17 08:23> - Objective Vital Signs & Weight: Vital Signs (12 hours) Temp Pulse Resp BP BP Pulse Ox 11/21/17 15:28 98.4 F 70 17 97 11/21/17 10:05 171/76 H 11/21/17 08:00 98.8 F 68 20 11/21/17 07:50 98.8 F 68 20 171/72 H 96 Weight Weight 63.14 kg I&O: 11/20/17 11/21/17 11/22/17 06:59 06:59 06:59 Intake Total 1960 1680 Output Total 1420 1450 Balance 540 230 Result Diagrams: 11/21/17 03:30 11/21/17 06:30 <Renetta Jeter - Last Filed: 11/21/17 18:58> Phys Exam - Physical Examination Constitutional: NAD HEENT: PERRLA, moist MMs Neck: no nodes, no JVD, supple, full ROM Respiratory: no wheezing, no rales, no rhonchi, clear to auscultation bilateral Cardiovascular: RRR, no significant murmur, no rub Gastrointestinal: soft, non-tender, no distention, positive bowel sounds Musculoskeletal: no edema, pulses present Neurological: non-focal, normal sensation Lymphatic: no nodes Psychiatric: normal affect, A&O x 3 Skin: no rash, normal turgor, cap refill <2 seconds <Nash Benavidez - Last Filed: 11/21/17 08:23> Dx/Plan (1) Bronchitis Code(s): J40 - BRONCHITIS, NOT SPECIFIED ACUTE OR CHRONIC Status: Acute (2) Elevated brain natriuretic peptide (BNP) level Code(s): R79.89 - OTHER SPECIFIED ABNORMAL FINDINGS OF BLOOD CHEMISTRY Status : Acute (3) HTN (hypertension) Code(s): I10 - ESSENTIAL (PRIMARY) HYPERTENSION Status: Acute (4) Pulmonary edema Code(s): J81.1 - CHRONIC PULMONARY EDEMA Status: Acute (5) Diastolic CHF, chronic Code(s): I50.32 - CHRONIC DIASTOLIC (CONGESTIVE) HEART FAILURE Status: Acute (6) Essential (primary) hypertension Code(s): I10 - ESSENTIAL (PRIMARY) HYPERTENSION Status: Acute (7) Hyperlipidemia Code(s): E78.5 - HYPERLIPIDEMIA, UNSPECIFIED Status: Acute (8) Microcytic anemia Code(s): D50.9 - IRON DEFICIENCY ANEMIA, UNSPECIFIED Status: Acute (9) Physical deconditioning Code(s): R53.81 - OTHER MALAISE Status: Acute - Plan Plan: 1)Pulm edema: -Per Dr. Huynh Cardiology we are holding lasix at this time. -strict Is/Os -daily weights -Repeat Cxray shows improvement and resolution. No acute process. -in light of negative cxr, no white count, negative lactic acid and negative procalcitonin will treat for presumed volume overload/pulmonary edema. Ur strep/ legionella negative -cont to monitor vitals, maintain sats >92%, O2 PRN. Will wean off oxygen. O2 sats been stable, O2 sats stable on RA at this time. 2)Elevated BNP - 2/2 CHF, above prior levels of 200s, currently 420 with evidence of pulm edema -troponins negative -Cardiology consulted-Dr. Huynh- Will follow recommendations -ECHO shows preserved EF with I/III diastolic dysfunction. Possibly would benefit from small oral dose of lasix. Will follow recs or cardiology. -Fluid restriction 3)HTN: Continue to monitor and adjust as needed. BP stable overnight 4)Osteoporosis: -home meds 5)PPX: SCds and pepcid for dvt and GI ppx 6)Full code: pts daughter reports pt is full code. Discussed with family. 7) Bronchitis: -vs cough 2/2 CHF -supportive care 8) Presyncopal vs syncope: -possibly 2/2 intravascular depletion -Has iron defecient microcytic anemia, replacing iron. Possibly cause -Pacemaker functioning appropriately 9) Microcytic anemia Hgb 8.9, improving, and MCV low. Hgb lowering at this time. -Iron low,replacing at this time. May need to increase to BID dose. Concern for constipation per family though. -Miralax for constipation side effect 10)Deconditioning -Pt been in bed and not moving around much -PT/OT consulted -Rehab screen pending <Nash Benavidez - Last Filed: 11/21/17 08:23> Attending Addendum - Attending Addendum Date/Time: 11/21/17 2908 I personally evaluated the patient and discussed the management with Dr. Benavidez. I agree with the History, Examination, Assessment and Plan documented above with any addition or exceptions noted below. Patient is doing well today. Home bp meds restarted. Inpt rehab screen pending. CXR reviewed and is improved. <Renetta Jeter - Last Filed: 11/21/17 18:58>
[2017-11-21] MEDS: Ferrous Sulfate 325 MG TAB PO SCH (08:29)
[2017-11-21] MEDS: buPROPion HCl 100 MG TAB PO SCH (08:29)
[2017-11-21] MEDS: Polyethylene Glycol 3350 17 GM Packet PO SCH (08:29)
[2017-11-21] MEDS: Calcium Carbonate 600 MG TAB PO SCH (08:29)
[2017-11-21] MEDS: Calcium Carbonate 500 MG ChewTAB PO SCH (08:30)
[2017-11-21] MEDS: Famotidine 20 MG TAB PO SCH (08:30)
[2017-11-21] MEDS: Multivit, Therapeutic 1 TAB PO SCH (08:30)
[2017-11-21] MEDS ORDERED: Furosemide 20 MG TAB PO SCH ×2 (10:00→10:15)
[2017-11-21] MEDS: Carvedilol 6.25 MG TAB PO SCH ×2 (10:05→20:42)
[2017-11-21] MEDS: Losartan 25 MG TAB PO SCH (14:27)
--- NOTE | 2017-11-21 14:35 | PDOC.CTH ---
<Eleni Machado - Last Filed: 11/21/17 14:33> Cardiology Progress Note - Subjective The pt seen and examined. No overnight events. No cardiac complaints. She has walked to bedside commode without any difficulties. - Objective Vital Signs Temp Pulse Resp BP BP Pulse Ox 11/21/17 10:05 171/76 H 11/21/17 08:00 98.8 F 68 20 11/21/17 07:50 98.8 F 68 20 171/72 H 96 11/21/17 04:00 97.6 F 73 20 153/58 H 97 Weight 139 lb 3.2 oz 11/20/17 11/21/17 11/22/17 06:59 06:59 06:59 Intake Total 1960 1680 Output Total 1420 1450 Balance 540 230 - Physical Examination General/Neuro: alert & oriented x3 Neck: no JVD present Lungs: CTA Heart: RRR Abdomen: soft Extremities: other: (No edema) - Telemetry Telemetry Rhythm: SR70s - Labs Result Diagrams: 11/21/17 03:30 11/21/17 06:30 Troponin/CKMB CK-MB (CK-2) 0.3 ng/mL (0-6.6) 11/17/17 08:30 Troponin I Less than 0.010 ng/mL (< 0.028) 11/17/17 15:22 - Assessment/Plan 1. Hx of Syncopal episodes - PM interrogation showed no arrhythmias or pulses; No recurrent events since this admission. 2. Acute on Chronic diastolic HF - Echo on 11/18/17 showed EF 50-55%, grade I diastolic dysfunction, trace MR, mild AR, and mild-mod TR. Lasix 20mg qd was resume from today. 3. Hypotension - Elevated. Lasix 20mg was restarted from today for possible due to diastolic dysfunction. 4. Paroxysmal AFib - Remains in SR. On BBlocker and ASA 81mg qd; Cont. to monitor 5. Hx of PM - PM interrogation showed normal with no arrhythmias. 6. amenia - On Iron supplement; managed by PCP 7. Bronchitis - CXR today showed normal. MAR reviewed * The pt is waiting for Rehab approve. Review of Systems - Review of Systems Constitutional: reports: no symptoms reported EENTM: reports: no symptoms reported Respiratory: reports: no symptoms reported Cardiac (ROS): reports: no symptoms reported ABD/GI: reports: no symptoms reported : reports: no symptoms reported Musculoskeletal: reports: no symptoms reported Skin: reports: no symptoms reported <Dipak Huynh - Last Filed: 11/21/17 16:37> Cardiology Progress Note - Objective Vital Signs Temp Pulse Resp BP BP Pulse Ox 11/21/17 15:28 98.4 F 70 17 97 11/21/17 10:05 171/76 H 11/21/17 08:00 98.8 F 68 20 11/21/17 07:50 98.8 F 68 20 171/72 H 96 Weight 139 lb 3.2 oz 11/20/17 11/21/17 11/22/17 06:59 06:59 06:59 Intake Total 1960 1680 Output Total 1420 1450 Balance 540 230 - Labs Result Diagrams: 11/21/17 03:30 11/21/17 06:30 Troponin/CKMB CK-MB (CK-2) 0.3 ng/mL (0-6.6) 11/17/17 08:30 Troponin I Less than 0.010 ng/mL (< 0.028) 11/17/17 15:22 - Assessment/Plan Pt. seen and eval. by me. I agree with the a/p by the MORTGAGE LOAN ASSISTANT. Chest : scatered rales. RRR. Plan for pt. to go to rehab.F/U in the office in 2-4 weeks.
[2017-11-22] MEDS ORDERED: hydrALAZINE 20 MG/ML VIAL SLOW IVP PRN (00:05)
--- NOTE | 2017-11-22 00:07 | PDOC.EVN ---
Event Note - Event Note Event Note: Called for SBP in 200s automatic and manual over the last 2 hours Patient had has low blood pressures throughout the week Will be cautious with control Went to bedside, patient denies headache, weakness, or SOB Will start hydralazine 5mg for max of 2 doses for sbp >170
--- NOTE | 2017-11-22 01:26 | PDOC.EVN ---
Event Note - Event Note Event Note: Called to bedside as patient is refusing to let nurse administer hydralazine Patient refuses to try alternate medication and refuses to let staff re-check her blood pressure Patient is A&Ox1, oriented only to name Called son Jung at 0120 Discussed risks of high blood pressure including confusion, stroke, htn encephalopathy, and heart failure Jung stated understanding of risk and he does not want us to treat Re-iterated risk, he states this is "normal for her blood pressure" and he does not want us to treat Will abide by families wishes
--- NOTE | 2017-11-22 08:20 | PDOC.FM ---
- Subjective Subjective: Pt is confused. Is trying to call girls to come home for dinner. Yet she is alert and oriented x3 to person, place and date. Per nursing pt was refusing bp checks and medications. She was also up all night. She attempted multiple times to get out of bed. Pt denies any pain. Denies any fever or chills. denies any increasing sob or chest pain. Pt reports doing well. - Objective MAR Reviewed: Yes Vital Signs & Weight: Vital Signs (12 hours) Temp Pulse Resp BP BP Pulse Ox 11/22/17 04:00 98.7 F 77 16 201/90 H 96 11/22/17 00:00 190/80 H Weight Weight 98.067 kg I&O: 11/21/17 11/22/17 11/23/17 06:59 06:59 06:59 Intake Total 1680 1070 Output Total 1450 2620 Balance 230 -1550 Result Diagrams: 11/21/17 03:30 11/21/17 06:30 EKG Reviewed by me: Yes Radiology Reviewed by me: Yes (No acute cardiopulm process on most recent cxray) <Nash Benavidez - Last Filed: 11/22/17 08:18> - Objective Vital Signs & Weight: Vital Signs (12 hours) Temp Pulse Pulse Resp BP BP BP 11/22/17 13:19 97.7 F 78 17 118/64 11/22/17 11:28 81 137/61 11/22/17 08:29 98.0 F 91 17 162/70 H 11/22/17 08:00 98.0 F 91 17 11/22/17 04:00 98.7 F 77 16 201/90 H Pulse Ox 11/22/17 13:19 94 L 11/22/17 11:28 11/22/17 08:29 96 11/22/17 08:00 11/22/17 04:00 96 Weight Weight 98.067 kg I&O: 11/21/17 11/22/17 11/23/17 06:59 06:59 06:59 Intake Total 1680 1070 Output Total 1450 2620 Balance 230 -1550 Result Diagrams: 11/21/17 03:30 11/21/17 06:30 <Renetta Jeter - Last Filed: 04/13/18 14:53> Phys Exam - Physical Examination Constitutional: NAD HEENT: PERRLA, moist MMs Neck: no nodes, no JVD, supple, full ROM Respiratory: no wheezing, no rales, no rhonchi, clear to auscultation bilateral Cardiovascular: RRR, no significant murmur, no rub Gastrointestinal: soft, non-tender, no distention, positive bowel sounds Musculoskeletal: no edema, pulses present Neurological: non-focal, moves all 4 limbs Lymphatic: no nodes Psychiatric: A&O x 3 Deviation from normal: Pt delirous and somewhat confused Skin: no rash, normal turgor <Nash Benavidez - Last Filed: 11/22/17 08:18> Dx/Plan (1) Bronchitis Code(s): J40 - BRONCHITIS, NOT SPECIFIED ACUTE OR CHRONIC Status: Acute (2) Elevated brain natriuretic peptide (BNP) level Code(s): R79.89 - OTHER SPECIFIED ABNORMAL FINDINGS OF BLOOD CHEMISTRY Status : Acute (3) HTN (hypertension) Code(s): I10 - ESSENTIAL (PRIMARY) HYPERTENSION Status: Acute (4) Pulmonary edema Code(s): J81.1 - CHRONIC PULMONARY EDEMA Status: Acute (5) Diastolic CHF, chronic Code(s): I50.32 - CHRONIC DIASTOLIC (CONGESTIVE) HEART FAILURE Status: Acute (6) Essential (primary) hypertension Code(s): I10 - ESSENTIAL (PRIMARY) HYPERTENSION Status: Acute (7) Hyperlipidemia Code(s): E78.5 - HYPERLIPIDEMIA, UNSPECIFIED Status: Acute (8) Microcytic anemia Code(s): D50.9 - IRON DEFICIENCY ANEMIA, UNSPECIFIED Status: Acute (9) Physical deconditioning Code(s): R53.81 - OTHER MALAISE Status: Acute - Plan Plan: 1)Pulm edema: -Oral lasix at this time. -strict Is/Os -daily weights -Repeat Cxray shows improvement and resolution. No acute process. -in light of negative cxr, no white count, negative lactic acid and negative procalcitonin will treat for presumed volume overload/pulmonary edema. Ur strep/ legionella negative -cont to monitor vitals, maintain sats >92%, O2 PRN. Will wean off oxygen. O2 sats been stable, O2 sats stable on RA at this time. 2)Elevated BNP - 2/2 CHF, above prior levels of 200s, currently 420 with evidence of pulm edema -troponins negative -Cardiology consulted-Dr. Huynh- Will follow recommendations -ECHO shows preserved EF with I/III diastolic dysfunction. Possibly would benefit from small oral dose of lasix. Will follow recs or cardiology. -Fluid restriction 3)HTN: Continue to monitor and adjust as needed. BP stable overnight 4)Osteoporosis: -home meds 5)PPX: SCds and pepcid for dvt and GI ppx 6)Full code: pts daughter reports pt is full code. Discussed with family. 7) Bronchitis: -vs cough 2/2 CHF -Tessalon perles -supportive care 8) Presyncopal vs syncope: -possibly 2/2 intravascular depletion -Has iron defecient microcytic anemia, replacing iron. Possibly cause -Pacemaker functioning appropriately 9) Microcytic anemia Hgb 8.9, improving, and MCV low. Hgb lowering at this time. Unable to draw labs as pt refusing due to delirium. -Iron low,replacing at this time. May need to increase to BID dose. Concern for constipation per family though. -Miralax for constipation side effect 10)Deconditioning -Pt been in bed and not moving around much -PT/OT consulted -Rehab screen pending. awaiting for approval. Is stable for d/c to rehab once approved <Nash Benavidez - Last Filed: 11/22/17 08:18> Attending Addendum - Attending Addendum Date/Time: 11/22/17 7895 I personally evaluated the patient and discussed the management with Dr. Benavidez. I agree with the History, Examination, Assessment and Plan documented above with any addition or exceptions noted below. The patient has severely elevated blood pressures overnight and the night team attempted to give a very low dose of hydralazine to get systolics out of the 200 's. Family refused the medication noting her bp was where they wanted it. Throughout the hospital stay they have refused bp meds wanting to keep the pt's bp high. We have discussed the risks which include a stroke and they voiced understanding. She has been accepted to inpt rehab and will be discharged today. Family states they will talk to the physicians at inpt rehab about where they want her blood pressure to be when she gets there. <Renetta Jeter - Last Filed: 11/22/17 14:53>
[2017-11-22] MEDS: Calcium Carbonate 500 MG ChewTAB PO SCH (08:34)
[2017-11-22] MEDS: Ferrous Sulfate 325 MG TAB PO SCH (08:34)
[2017-11-22] MEDS: buPROPion HCl 100 MG TAB PO SCH (08:34)
[2017-11-22] MEDS: Losartan 25 MG TAB PO SCH (08:35)
[2017-11-22] MEDS: Carvedilol 6.25 MG TAB PO SCH (08:35)
[2017-11-22] MEDS: Multivit, Therapeutic 1 TAB PO SCH (08:35)
[2017-11-22] MEDS: Famotidine 20 MG TAB PO SCH (08:35)
[2017-11-22] MEDS: Polyethylene Glycol 3350 17 GM Packet PO SCH (08:36)
[2017-11-22] MEDS: Benzonatate 100 MG CAP PO SCH ×2 (08:38→16:05)
[2017-11-22] MEDS ORDERED: Furosemide 20 MG TAB PO SCH (09:00)
--- NOTE | 2017-11-22 12:00 | PDOC.CTH ---
Cardiology Progress Note - Subjective The pt seen and examined. No overnight events. No cardiac complaints. Per family, her long-term PCP would like her SBP 150-170. - Objective Vital Signs Temp Pulse Resp BP BP Pulse Ox 11/22/17 08:29 98.0 F 91 17 162/70 H 96 11/22/17 08:00 98.0 F 91 17 11/22/17 04:00 98.7 F 77 16 201/90 H 96 11/22/17 00:00 190/80 H Weight 216 lb 3.2 oz 11/21/17 11/22/17 11/23/17 06:59 06:59 06:59 Intake Total 1680 1070 Output Total 1450 2620 Balance 230 -1550 - Physical Examination General/Neuro: alert & oriented x3 Neck: no JVD present Lungs: other: (coases and diminished at bases) Heart: RRR Abdomen: soft Extremities: other: (No edema) - Telemetry Telemetry Rhythm: SR 80s - Labs Result Diagrams: 11/21/17 03:30 11/21/17 06:30 Troponin/CKMB CK-MB (CK-2) 0.3 ng/mL (0-6.6) 11/17/17 08:30 Troponin I Less than 0.010 ng/mL (< 0.028) 11/17/17 15:22 - Assessment/Plan 1. Hx of Syncopal episodes - PM interrogation showed no arrhythmias or pulses; No recurrent events since this admission. 2. Acute on Chronic diastolic HF - Echo on 11/18/17 showed EF 50-55%, grade I diastolic dysfunction, trace MR, mild AR, and mild-mod TR. Stable with RA with Lasix 20mg qd. 3. HTN - The pt refused to receive PRN BP med for BP > 200 last night. Per family, her BP was unstable and her PCP would like to keep her SBP 150-170 and PRN BP med even BP > 200 because her next BP tend to be very low. 4. Paroxysmal AFib - Remains in SR. On BBlocker and ASA 81mg qd; Cont. to monitor 5. Hx of PM - PM interrogation showed normal with no arrhythmias. 6. Hayden - On Iron supplement; managed by PCP 7. Bronchitis - On Meka for chronic cough MAR reviewed * Keep SBP 150-170. * The pt will be tx to rehab possible today. The pt will f/u with Dr Huynh' office within 2-4 weeks. Review of Systems - Review of Systems Constitutional: reports: no symptoms reported EENTM: reports: no symptoms reported Respiratory: reports: no symptoms reported Cardiac (ROS): reports: no symptoms reported ABD/GI: reports: no symptoms reported : reports: no symptoms reported
[2017-11-22 13:24] VITALS: TEMP 97.7
[2017-11-22 14:10] VITALS: BP 137/61
--- NOTE | 2017-11-25 12:59 | DIS-2 ---
DATE OF DISCHARGE: 11/22/2017 ADMISSION ATTENDING: Dr. Talat Luo DISCHARGE ATTENDING: Dr. Renetta Jeter RESIDENT: Nash Benavidez M.D., PGY1. CONSULTATIONS: Include Cardiology, both Dr. Vic Aldrich and Dr. Huynh. IMAGIN. Chest x-ray on 11/17/2017: Shows congestive heart failure. 2. We then got echo on 11/18/2017 which showed EF of 50-55% 1-3 diastolic dysfunction. Normal ventr icular size and mild to moderate tricuspid regurgitation. 3. We then got a chest x-ray on 11/21/2017 which showed no evidence of acute cardiopulmonary disease . Cardiomegaly. DISCHARGE MEDICATIONS: 1. Aspirin 81 mg. 2. Tessalon Perles 100 mg p.o. t.i.d. 3. Bupropion 100 mg p.o. daily. 4. Calcium carbonate 2 tablets p.o. daily. 5. Carvedilol 12.5 mg p.o. b.i.d. 6. Famotidine 20 mg p.o. daily. 7. Ferrous sulfate 320 mg p.o. q.a.m. 8. Lasix 20 mg p.o. daily. 9. Losartan 25 mg p.o. daily. 10. Multivitamin 1 tablet p.o. daily. 11. Polyethylene glycol 30 grams p.o. daily. DISCONTINUED MEDICATIONS: Amitriptyline. DIAGNOSES: 1. Pulmonary edema causing some acute hypoxic respiratory failure. 2. Elevated BNP and possible diastolic heart failure. 3. Hypertension. 4. Osteoporosis. 5. Bronchitis. 6. Syncope, likely secondary to microcytic anemia and some decreased oxygen from pulmonary edema. 7. Deconditioning. HISTORY OF PRESENT ILLNESS AND BRIEF HOSPITAL COURSE: This is an 87-year-old female with hypertensio n, hyperlipidemia, pacemaker, and osteoporosis who had come in with a 2-day history of low grade temp erature and cough and also reported that she had had episodes of passing out from 30-90 seconds over the last week. When she came in her fever was 100.1. We got the chest x-ray which showed congestive heart failure. We got a BNP which was 421, which was elevated from previous exams. Her white blood cell count was normal at 6.7. EKG showed sinus arrhythmia with some PVCs. At this time we admitted her to tele, gave her Lasix 20 mg. We got the echo which showed results above. Her lungs, she did have some decreased breath sounds on her lungs. Her BNP was 420 which was elevated from 200 at previ ous exams. The echo showed some diastolic dysfunction with mild mitral regurg. At this time we cons ulted Cardiology who came on board. Also, during this time, there was concern for infection. We got a procalcitonin which was negative. We got strep pneumo urine and legionella which were negative. Her white blood cell count was never elevated. At this time, her hemoglobin was a little bit lower t crockett usual, around 8, so we ended up getting the iron panel which her iron was low at 15. Ferritin wa s 32 and TIBC was 315. At this time, we decided to start her on iron medicine. We only started her on a once daily due to family's concern of constipation. We also added MiraLax on for the constipati on. During this time while she was here, about a few days in, we had been getting her diuresis. We repeated a chest x-ray which showed improvement, no longer showed fluid on the lungs, but at this kip e her blood pressure dropped kind of low, likely due to a little bit over diuresis. We would give he r 1 bolus that day and would hold her medication for the day. Family was very concerned. They said they like to keep her blood pressure over 170s to the 200s. Again, we discussed with them the risk of stroke, but the family wishes, they liked her blood pressure to run higher than lower. We did end up on discharge continuing her Lasix 20 mg oral once daily due to a little bit of fluid overload. A gain, Dr. Huynh was in agreement with this. She was the one who started the Lasix after we dropped he r blood pressure a little bit low. By the time of discharge, she was doing well. The patient has so me underlying dementia. She had been lying in bed, was kind of weak. She seemed to have some decond itioning due to not getting up and moving around. At this time, we recommended rehab. The family wa s in agreement to this. We got rehab screen and was approved for rehab. At this time she never did have any fevers. Her blood pressures have stabilized up in the 150s and she was doing well clinicall y. Also, while she was here due to the pulmonary edema she was requiring up to 4 liters of oxygen wh en was initially here, we continued with the Lasix. She eventually would come off the oxygen, no kojo priti requiring it. She never used oxygen at home, that is what made her be acute hypoxic respiratory failure. At this time she was no longer on oxygen, approved for rehab. Her repeat chest x-ray showe d clearance of the fluid. At this time, be discharged to rehab. DISPOSITION: Stable. DISCHARGE INSTRUCTIONS: 1. Location: Rehab. 2. Activity: As designed by PT and OT. 3. Diet: Will need to follow a heart healthy diet with mild fluid restriction. 4. Followup: Will need to follow up with her primary care physician in at least 14 days for [facility] followup, has a scheduled appointment to follow up with Dr. Huynh outpatient as well.
--- NOTE | 2017-12-31 12:46 | EKG ---
Test Reason : WEAKNESS Blood Pressure : / mmHG Vent. Rate : 079 BPM Atrial Rate : 079 BPM P-R Int : 166 ms QRS Dur : 090 ms QT Int : 378 ms P-R-T Axes : 094 -10 030 degrees QTc Int : 433 ms Sinus rhythm with marked sinus arrhythmia with Premature ventricular complexes or Fusion complexes Nonspecific ST and T wave abnormality Abnormal ECG Confirmed by PARIS DAS, ADRIAN ([id number]), art editor BRIAN WHITLEY ([id number]) on 12/31/2017 12:45:31 PM Referred By: Confirmed By:ADRIAN TOLEDO MD
== END 2017-11-22 16:11 | disposition home or self-care (01) | DRG 291 ==
LOC: ERS 08:10 → 2NO 15:07 → OBSVTOIN 11-19 14:36
PROVIDERS: ADMIT Family Medicine; ATTEND Family Medicine
DX: I11.0 Hypertensive heart disease with heart failure (principal); J96.01 Acute respiratory failure with hypoxia; I50.33 Acute on chronic diastolic (congestive) heart failure; D50.9 Iron deficiency anemia, unspecified; M81.0 Age-related osteoporosis without current pathological fracture; J20.9 Acute bronchitis, unspecified; E78.5 Hyperlipidemia, unspecified; I48.0 Paroxysmal atrial fibrillation; Z88.2 Allergy status to sulfonamides; Z79.82 Long term (current) use of aspirin; Z79.899 Other long term (current) drug therapy; Z95.0 Presence of cardiac pacemaker
CPT/HCPCS: 36415; 71045; 80048; 80053; 82553; 82728; 83540; 83550; 83605; 83735; 83880; 84145; 84484; 85025; 87070; 87899; 90471; 90670; 93005; 93306; 96374; A4353; G0009; G8978-GP-CK; G8979-GP-CI; G8987-GO-CM; G8988-GO-CK; J0360; J1940; J7050

== ENCOUNTER 2017-12-03 19:33 | Inpatient (IN) | payer MEDICARE, BC ==
[2017-12-03 20:11] LABS: Bilirubin Negative (Negative); Blood, Urine Negative (Negative); Clarity CLEAR (Clear); Glucose, Urine (Dipstick) Negative (Negative); Leukocyte Negative (Negative); Nitrite Negative (Negative); Protein, Urine (Dipstick) Negative (Neg-Trace); Specific Gravity, Urine 1.014 (1.002-1.036); Urobilinogen 0.2 mg/dL (0.2-1.0); pH, Urine 6.5 (5.0-9.0)
[2017-12-03 20:17] LABS: #Basophils 0.1 thou/uL (0.0-0.2); #Eosinphils 0.1 thou/uL (0.0-0.7); #Lymphocytes 2.3 thou/uL (1.20-3.40); #Neutrophils 7.9 thou/uL (1.40-6.50); %Basophils 0.7 % (0.0-1.0); %Eosinophils 0.8 % (0.0-10.0); %Monocytes 8.7 % (0.0-10.0); %Neutrophils 69.8 % (42.0-75.0); Hemoglobin 9.8 g/dL (12.0-16.0); Mean Corpuscular HGB CONC 31.7 g/dL (32.0-36.0); Mean Corpuscular Hemoglobin 23.8 pg (27.0-31.0); Mean Corpuscular Volume 75.1 fl (81.0-99.0); Mean Platelet Volume 7.5 fL (7.4-10.4); Platelet Count 401 thou/uL (130-400); RBC Distribution Width 20.4 % (11.5-14.5); White Blood Cell (WBC) Count 11.3 thou/uL (4.8-10.8)
[2017-12-03 20:45] LABS: ALT (SGPT) 14 U/L (8-55); AST (SGOT) 13 U/L (5-34); Albumin 3.7 g/dL (3.4-4.8); Alkaline Phosphatase 63 U/L (40-150); Anion Gap 13 mmol/L (10-20); BUN (Urea Nitrogen) 19 mg/dL (9.8-20.1); Bilirubin, Total 0.3 mg/dL (0.2-1.2); Calc. Creatinine Clearance 0 mL/min (70-130); Carbon Dioxide 27 mmol/L (23-31); Chloride 96 mmol/L (98-107); Estimated GFR-MDRD 40; Globulin 2.8 g/dL (2.4-3.5); Glucose 111 mg/dL (83-110); Protein, Total 6.5 g/dL (6.0-8.3); Sodium 134 mmol/L (136-145)
[2017-12-03 20:50] LABS: Potassium 2.9 mmol/L (3.5-5.1)
[2017-12-03] MEDS ORDERED: Potassium Chloride 20 MEQ TAB ONE (21:12)
--- NOTE | 2017-12-03 21:22 | RAD ---
ONE VIEW CHEST: 12/03/17 FINDINGS: Slight elongation of the aorta. Stable left sided transvenous pacemaker. Chronic changes of the lung parenchyma. No consolidation or mass. No pneumothorax. Old right rib fractures are noted. Incompletely evaluated proximal right humerus. Correlation made with right shoulder radiograph from 08/19/16 suggests remote fracture with posttraumatic change. Dedicated imaging if clinically warranted. IMPRESSION: Chronic changes as above. POS: [facility]
[2017-12-03 21:43] LABS: CKMB 1.3 ng/mL (0-6.6); Troponin I 0.014 ng/mL (< 0.028)
--- NOTE | 2017-12-03 22:34 | RAD ---
THREE VIEWS RIGHT SHOULDER 12/03/17 HISTORY: Deformity. There appears to be an incompletely healed proximal humerus fracture. There is some callus formation but a fracture lucency is still noted. There appears to be foreshortening. IMPRESSION: Presumed chronic but unhealed proximal humerus fracture. POS: [facility]
--- NOTE | 2017-12-03 22:42 | CT ---
NONCONTRAST HEAD CT: 12/03/17 COMPARISON: 11/04/16. HISTORY: Altered mental status. TECHNIQUE: Noncontrast head CT is performed from skull base to skull vertex. FINDINGS: No parenchymal hemorrhage. No extra-axial hematoma. No midline shift. Basilar cisterns are patent. Age appropriate atrophy. Cortical hunter-white matter differentiation is preserved. Ventricles and sulci are patent and symmetric. Chronic small vessel ischemic change of the white matter identified. Calvarium is intact. Adequate aeration of the sinuses and mastoid air cells. IMPRESSION: 1. No acute intracranial process. 2. Age appropriate atrophy. 3. Chronic small vessel ischemic change of the white matter. POS: [facility]
[2017-12-03] MEDS ORDERED: Acetaminophen 325 MG TAB PO PRN (23:18)
[2017-12-04 00:32] VITALS: BMI 22.4
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
[2017-12-04] MEDS ORDERED: Ondansetron ODT 4 MG TAB PO PRN (09:28)
[2017-12-04] MEDS ORDERED: Dextrose 5 % And 0.9 % NaCl 1,000 ML IV SCH (09:30)
[2017-12-04 09:34] LABS: #Basophils 0.1 thou/uL (0.0-0.2); #Eosinphils 0.1 thou/uL (0.0-0.7); #Lymphocytes 1.8 thou/uL (1.20-3.40); #Monocytes 0.7 thou/uL (0.11-0.59); #Neutrophils 5.9 thou/uL (1.40-6.50); %Basophils 1.1 % (0.0-1.0); %Eosinophils 1.3 % (0.0-10.0); %Lymphocytes 21.1 % (21.0-51.0); %Monocytes 7.7 % (0.0-10.0); %Neutrophils 68.9 % (42.0-75.0); Mean Corpuscular HGB CONC 31.9 g/dL (32.0-36.0); Mean Corpuscular Hemoglobin 24.1 pg (27.0-31.0); Mean Corpuscular Volume 75.5 fl (81.0-99.0); Mean Platelet Volume 7.7 fL (7.4-10.4); Platelet Count 397 thou/uL (130-400); RBC Distribution Width 20.6 % (11.5-14.5); Red Blood Cell (RBC) Count 4.14 mill/uL (4.20-5.40); White Blood Cell (WBC) Count 8.6 thou/uL (4.8-10.8)
[2017-12-04] MEDS: Carvedilol 6.25 MG TAB PO SCH ×2 (09:48→21:22)
[2017-12-04] MEDS: Losartan 25 MG TAB PO SCH (09:48)
[2017-12-04 10:09] LABS: Anion Gap 12 mmol/L (10-20); BUN (Urea Nitrogen) 15 mg/dL (9.8-20.1); Calc. Creatinine Clearance 35 mL/min (70-130); Calcium 9.7 mg/dL (7.8-10.44); Carbon Dioxide 29 mmol/L (23-31); Chloride 99 mmol/L (98-107); Estimated GFR-MDRD 46; Glucose 108 mg/dL (83-110); Sodium 137 mmol/L (136-145)
[2017-12-04 10:15] LABS: Potassium 2.9 mmol/L (3.5-5.1)
--- NOTE | 2017-12-04 10:37 | PDOC.EVN ---
Event Note - Event Note Event Note: paged regarding potassium 2.9 ordered 40meq oral and 40meq IV Magnesium is good at 2.0 Will re-check BMP at 1400
[2017-12-04] MEDS ORDERED: Potassium Chloride 40 MEQ in Premix Bag 1 BAG IVPB SCH (10:45)
[2017-12-04] MEDS ORDERED: Potassium Chloride 20 MEQ TAB PO SCH (10:45)
[2017-12-04] MEDS ORDERED: hydrALAZINE 20 MG/ML VIAL SLOW IVP PRN (11:31)
[2017-12-04] MEDS ORDERED: Acetaminophen 325 MG TAB PO PRN (11:33)
[2017-12-04] MEDS ORDERED: Milk Of Magnesia 30 ML UDCUP PO PRN (11:33)
[2017-12-04] MEDS: DEXTROSE IV SCH ×2 (13:48→23:38)
[2017-12-04] MEDS: NACL IV SCH ×2 (13:48→23:38)
[2017-12-04] MEDS: Potassium Chloride 20 MEQ in Premix Bag 1 BAG IVPB SCH ×2 (13:48→17:25)
[2017-12-04] MEDS: ADMIXTURE FEE IV SCH ×2 (13:48→23:38)
[2017-12-04] MEDS: POTASSIUM ACETATE IV SCH ×2 (13:48→23:38)
[2017-12-04] MEDS ORDERED: Ziprasidone 20 MG CAP PO SCH (14:00)
[2017-12-04] MEDS: Ziprasidone 20 MG CAP PO SCH ×2 (17:25→18:14)
[2017-12-05 07:25] LABS: Anion Gap 7 mmol/L (10-20); BUN (Urea Nitrogen) 12 mg/dL (9.8-20.1); Calc. Creatinine Clearance 39 mL/min (70-130); Calcium 8.7 mg/dL (7.8-10.44); Carbon Dioxide 30 mmol/L (23-31); Chloride 107 mmol/L (98-107); Estimated GFR-MDRD 54; Glucose 103 mg/dL (83-110); Potassium 4.3 mmol/L (3.5-5.1); Sodium 140 mmol/L (136-145)
[2017-12-05] MEDS: Carvedilol 6.25 MG TAB PO SCH (08:16)
[2017-12-05] MEDS: Losartan 25 MG TAB PO SCH (08:16)
[2017-12-05] MEDS: Ziprasidone 20 MG CAP PO SCH (08:17)
[2017-12-05] MEDS: Enoxaparin Sodium 30 MG/0.3 ML SYRINGE SC SCH ×2 (08:17→12:19)
--- NOTE | 2017-12-05 08:49 | PDOC.FM ---
- Subjective Subjective: Patient lying in bed this AM in NAD. She denies any pain, SOB, fever, LE swelling. She denies having an appetite. She reports that she slept well overnight. She is AOx2 - Objective MAR Reviewed: Yes Vital Signs & Weight: Vital Signs (12 hours) Temp Pulse Resp BP BP Pulse Ox 12/05/17 08:16 147/79 H 12/05/17 05:44 97.7 F 66 18 159/67 H 95 12/05/17 00:00 97.9 F 67 20 137/61 97 12/04/17 21:22 104/58 L I&O: 12/04/17 12/05/17 12/06/17 06:59 06:59 06:59 Intake Total 1010 Balance 1010 Result Diagrams: 12/04/17 09:05 12/05/17 06:58 <Jyoti Montes - Last Filed: 12/05/17 08:47> - Objective Vital Signs & Weight: Vital Signs (12 hours) Temp Pulse Resp BP BP Pulse Ox 12/05/17 08:16 147/79 H 12/05/17 08:00 97.8 F 68 14 147/79 H 96 12/05/17 05:44 97.7 F 66 18 159/67 H 95 12/05/17 00:00 97.9 F 67 20 137/61 97 I&O: 12/04/17 12/05/17 12/06/17 06:59 06:59 06:59 Intake Total 1010 Balance 1010 Result Diagrams: 12/04/17 09:05 12/05/17 06:58 <Shaji Friedman - Last Filed: 12/05/17 11:18> Phys Exam - Physical Examination Constitutional: NAD dry mucous membranes, poor dentition Respiratory: no wheezing, no rales, no rhonchi, clear to auscultation bilateral Cardiovascular: RRR, no significant murmur, no rub Gastrointestinal: soft, non-tender, no distention, positive bowel sounds Musculoskeletal: no edema, pulses present Neurological: non-focal, moves all 4 limbs Psychiatric: normal affect, A&O x 3 Skin: cap refill <2 seconds <Jyoti Montes - Last Filed: 12/05/17 08:47> Dx/Plan (1) Delirium Code(s): R41.0 - DISORIENTATION, UNSPECIFIED Status: Acute (2) Dehydration Code(s): E86.0 - DEHYDRATION Status: Acute (3) MARY (acute kidney injury) Code(s): N17.9 - ACUTE KIDNEY FAILURE, UNSPECIFIED Status: Acute (4) Hypokalemia Code(s): E87.6 - HYPOKALEMIA Status: Acute (5) Humerus distal fracture Code(s): S42.409A - UNSP FRACTURE OF LOWER END OF UNSP HUMERUS, INIT FOR CLOS FX Status: Chronic QualifierTitle: Encounter type: subsequent encounter Fracture type: closed Fracture morphology: unspecified fracture morphology Laterality: right Fracture healing: with delayed healing Qualified Code(s): S42.401G - Unspecified fracture of lower end of right humerus, subsequent encounter for fracture with delayed healing (6) Diastolic CHF, chronic Code(s): I50.32 - CHRONIC DIASTOLIC (CONGESTIVE) HEART FAILURE Status: Acute (7) Essential (primary) hypertension Code(s): I10 - ESSENTIAL (PRIMARY) HYPERTENSION Status: Acute (8) Hyperlipidemia Code(s): E78.5 - HYPERLIPIDEMIA, UNSPECIFIED Status: Acute QualifierTitle: Hyperlipidemia type: unspecified Qualified Code(s): E78.5 - Hyperlipidemia, unspecified - Plan Plan: Encephalopathy DDx: Delirium vs dementia vs infection The patient is paranoid and delirious. She has had an acute change from baseline mental status in the 24 hours prior to admission -Will r/o infectious causes with BCx - UA was negative and CXR was WNL -CT head showed no hemorrhage or mass effect, will consider MRI if patient continues to deteriorate -Will start patient on Geodon 20mg BID with Haldol prn, will repeat EKG today to watch for QTc prolongation -Sitter -Fall Precautions Dehydration The patient has not been eating or drinking for the past week. She appears dry on exam. She also has an MARY. -D5NS @ 100, will stop after 2L to avoid fluid overload - will reassess at that time. -Dietitian consult -Encourage PO hydration, but patient is refusing to eat or drink anything until she is discharged from the hospital. She had 0% of her lunch yesterday and 5% of her dinner last night. MARY Initial GFR 40 with BUN 19 and Cr 1.25, this has improved with IV hydration. Her Cr this AM is 0.98 -Will hydrate patient with D5NS @ 100 -Repeat BMP in AM Hypokalemia K 2.9 initially, s/p 40mEq KCl in the ED. Mag WNL. Her K is now WNL -Will replete as needed -Recheck HTN -continue home meds -PRN Hydralazine for SBP>180 HFpEF Most recent Echo earlier this month showed EF 50-55% with Grade I/III diastolic dysfunction -Will avoid fluid overload, but patient is clinically dry and needs to be rehydrated -Strict I/O's Osteoporosis Patient has had multiple falls and fractures. She has a non-healed proximal humerus fx on the R -Fall precautions -Sitter <Jyoti Montes - Last Filed: 12/05/17 08:47> Attending Addendum - Attending Addendum Date/Time: 12/05/17 1115 I personally evaluated the patient and discussed the management with Dr. Montes I agree with the History, Examination, Assessment and Plan documented above with any addition or exceptions noted below. Rec given history of diastolic failure avoid aggressive BP management with assumed vascular dementia accept <150/90 follow BNP regard fluid status. Patient remains agitated with stimulation, discussed care plan and placement options with family. <Shaji Friedman - Last Filed: 12/05/17 11:18>
[2017-12-05] MEDS ORDERED: Polyethylene Glycol 3350 17 GM Packet PO SCH (09:00)
[2017-12-05] MEDS: Dextrose 5 % And 0.9 % NaCl 1,000 ML IV SCH ×2 (12:18→19:06)
[2017-12-05] MEDS: buPROPion HCl 100 MG TAB PO SCH (12:18)
[2017-12-05] MEDS: Haloperidol Lactate 5 MG/ML VIAL SLOW IVP PRN ×2 (15:50→20:02)
--- NOTE | 2017-12-05 16:33 | EKG ---
Test Reason : Blood Pressure : / mmHG Vent. Rate : 068 BPM Atrial Rate : 068 BPM P-R Int : 176 ms QRS Dur : 094 ms QT Int : 422 ms P-R-T Axes : 097 -06 017 degrees QTc Int : 448 ms Normal sinus rhythm Normal ECG Confirmed by MARIUM JERONIMO ([id number]) on 12/05/2017 4:32:52 PM Referred By: PADMA Confirmed By:MARIUM JERONIMO
[2017-12-05] MEDS: Haloperidol Lactate 5 MG/ML VIAL SLOW IVP SCH ×2 (17:55→23:40)
[2017-12-05] MEDS ORDERED: Haloperidol Lactate 5 MG/ML VIAL IM PRN (20:21)
[2017-12-06] MEDS: Haloperidol Lactate 5 MG/ML VIAL IM SCH ×2 (00:25→06:45)
[2017-12-06] MEDS: buPROPion HCl 100 MG TAB PO SCH (08:09)
--- NOTE | 2017-12-06 08:33 | PDOC.FM ---
- Subjective Subjective: Patient was very agitated this morning and refused to talk to me or let me examine her. She was yelling at me to "go back to where I came from" and trying to make me leave the room. She did answer a few questions in denying any fevers , SOB, N/V. She informed me that she is still refusing to eat until she is released from the hospital. - Objective MAR Reviewed: Yes Vital Signs & Weight: Vital Signs (12 hours) Temp Pulse Resp BP 12/06/17 07:32 98.6 F 83 16 206/96 H I&O: 12/05/17 12/06/17 12/07/17 06:59 06:59 06:59 Intake Total 1010 120 Output Total 600 Balance 1010 -480 Result Diagrams: 12/04/17 09:05 12/05/17 06:58 <Jyoti Montes - Last Filed: 12/06/17 08:31> - Objective Vital Signs & Weight: Vital Signs (12 hours) Temp Pulse Resp BP Pulse Ox 12/06/17 08:00 98.6 F 83 16 95 12/06/17 07:32 98.6 F 83 16 206/96 H I&O: 12/05/17 12/06/17 12/07/17 06:59 06:59 06:59 Intake Total 1010 120 Output Total 600 Balance 1010 -480 Result Diagrams: 12/04/17 09:05 12/05/17 06:58 <Shaji Friedman - Last Filed: 12/06/17 11:42> Phys Exam - Physical Examination Constitutional: NAD unable to do a full exam due to lack of pt cooperation HEENT: moist MMs Gastrointestinal: soft, non-tender, no distention Musculoskeletal: no edema Neurological: moves all 4 limbs Deviation from normal: agitated, delusional, A&Ox2 <Jyoti Montes - Last Filed: 12/06/17 08:31> Dx/Plan (1) Delirium Code(s): R41.0 - DISORIENTATION, UNSPECIFIED Status: Acute (2) Dehydration Code(s): E86.0 - DEHYDRATION Status: Acute (3) MARY (acute kidney injury) Code(s): N17.9 - ACUTE KIDNEY FAILURE, UNSPECIFIED Status: Acute (4) Hypokalemia Code(s): E87.6 - HYPOKALEMIA Status: Acute (5) Humerus distal fracture Code(s): S42.409A - UNSP FRACTURE OF LOWER END OF UNSP HUMERUS, INIT FOR CLOS FX Status: Chronic QualifierTitle: Encounter type: subsequent encounter Fracture type: closed Fracture morphology: unspecified fracture morphology Laterality: right Fracture healing: with delayed healing Qualified Code(s): S42.401G - Unspecified fracture of lower end of right humerus, subsequent encounter for fracture with delayed healing (6) Diastolic CHF, chronic Code(s): I50.32 - CHRONIC DIASTOLIC (CONGESTIVE) HEART FAILURE Status: Acute (7) Essential (primary) hypertension Code(s): I10 - ESSENTIAL (PRIMARY) HYPERTENSION Status: Acute (8) Hyperlipidemia Code(s): E78.5 - HYPERLIPIDEMIA, UNSPECIFIED Status: Acute QualifierTitle: Hyperlipidemia type: unspecified Qualified Code(s): E78.5 - Hyperlipidemia, unspecified - Plan Plan: 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 She has had an acute change from baseline mental status in the 24 hours prior to admission. Infection has been ruled out, no signs of CVA or hemorrhage on CT head. -Haldol 5mg now, patient was on 1mg q6h overnight, but is still very agitated. No QTc prolongation. -Sitter -Fall Precautions -MHMR was consulted, but unable to do anything -CM consulted to attempt to get the patient in an inpatient allie psych unit Dehydration The patient has not been eating or drinking for the past week. Her MARY has improved and hydration status improved after fluids. -Patient was getting fluids, but she pulled out her IV last night and is now refusing a new one, will encourage PO hydration, but patient is not wanting to eat or drink anything at this time -Dietitian consult MARY Initial GFR 40 with BUN 19 and Cr 1.25, this has improved with IV hydration. -No longer receiving IV fluids due to pt pulling out IV and now refusing a new IV -Repeat BMP in AM Hypokalemia K 2.9 initially, s/p 40mEq KCl in the ED. Mag WNL. Her K is now WNL -Will replete as needed -Recheck HTN -restart losartan this AM -hold carvedilol HFpEF Most recent Echo earlier this month showed EF 50-55% with Grade I/III diastolic dysfunction -Will avoid fluid overload, but patient is clinically dry and needs to be rehydrated -Strict I/O's Osteoporosis Patient has had multiple falls and fractures. She has a non-healed proximal humerus fx on the R -Fall precautions -Sitter Dispo: will attempt to get the patient admitted to an inpatient [facility] unit for close monitoring. Working with CM on this. <Jyoti Montes - Last Filed: 12/06/17 08:31> Attending Addendum - Attending Addendum Date/Time: 12/06/17 1662 I personally evaluated the patient and discussed the management with Dr. Montes I agree with the History, Examination, Assessment and Plan documented above with any addition or exceptions noted below. Discussed care with son and daughter in law. Patient refusing po and rx remains agitated and danger to herself will attempt restart IV after haldol IM then start scheduled dosage IV BP RX and clonidine patch. Attempt [facility] with agitation and delusion. <Shaji Friedman - Last Filed: 12/06/17 11:42>
[2017-12-06] MEDS ORDERED: cloNIDine 0.3mg/24 Hour PATCH TD SCH (09:00)
[2017-12-06] MEDS ORDERED: Haloperidol Lactate 5 MG/ML VIAL IM SCH (09:15)
[2017-12-06] MEDS: Losartan 25 MG TAB PO SCH (09:47)
[2017-12-06] MEDS ORDERED: Fentanyl 100 MCG/2 ML VIAL IM SCH (10:15)
[2017-12-06] MEDS ORDERED: Lactated Ringer's 1,000 ML IV SCH (11:00)
[2017-12-06] MEDS ORDERED: cloNIDine 0.1mg/24 Hour PATCH TD SCH ×2 (11:30→18:00)
[2017-12-06] MEDS ORDERED: Enalaprilat Dihydrate 1.25 MG/ML VIAL SLOW IVP SCH (11:30)
[2017-12-06] MEDS ORDERED: Haloperidol Lactate 5 MG/ML VIAL IVPB SCH (12:00)
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
[2017-12-06] MEDS ORDERED: Haloperidol Lactate 5 MG/ML VIAL SLOW IVP PRN (12:04)
[2017-12-06] MEDS ORDERED: Haloperidol Lactate 5 MG/ML VIAL SLOW IVP SCH (13:45)
[2017-12-06] MEDS: Haloperidol Lactate 5 MG/ML VIAL SLOW IVP SCH ×3 (13:48→22:17)
[2017-12-06 14:05] LABS: Anion Gap 11 mmol/L (10-20); BUN (Urea Nitrogen) 13 mg/dL (9.8-20.1); Calc. Creatinine Clearance 44 mL/min (70-130); Carbon Dioxide 22 mmol/L (23-31); Chloride 108 mmol/L (98-107); Estimated GFR-MDRD 61; Glucose 76 mg/dL (83-110); Sodium 137 mmol/L (136-145)
[2017-12-06] MEDS: Dextrose 5%-Lactated Ringers 1,000 ML IV SCH (15:53)
[2017-12-07] MEDS: Dextrose 5%-Lactated Ringers 1,000 ML IV SCH ×3 (02:14→21:28)
[2017-12-07] MEDS: Haloperidol Lactate 5 MG/ML VIAL SLOW IVP SCH ×6 (02:16→22:12)
[2017-12-07 04:17] LABS: Anion Gap 10 mmol/L (10-20); BUN (Urea Nitrogen) 11 mg/dL (9.8-20.1); Calc. Creatinine Clearance 47 mL/min (70-130); Calcium 8.8 mg/dL (7.8-10.44); Carbon Dioxide 25 mmol/L (23-31); Chloride 109 mmol/L (98-107); Estimated GFR-MDRD 65; Glucose 101 mg/dL (83-110); Potassium 3.8 mmol/L (3.5-5.1); Sodium 140 mmol/L (136-145)
--- NOTE | 2017-12-07 06:37 | PDOC.FM ---
- Subjective Subjective: Patient is resting comfortably this morning. She reports no pain. She refuses breakfast and an exam this morning. No acute events overnight. - Objective MAR Reviewed: Yes Vital Signs & Weight: Vital Signs (12 hours) Temp Pulse Resp BP Pulse Ox 12/07/17 00:22 85 18 166/76 H 12/06/17 20:41 98.5 F 89 20 180/70 H 92 L Weight Admit Weight 63.049 kg Weight 63.049 kg I&O: 12/05/17 12/06/17 12/07/17 06:59 06:59 06:59 Intake Total 5386 800 6562.4 Output Total 600 Balance 1010 -480 1141.4 Result Diagrams: 12/04/17 09:05 12/07/17 03:21 <Malena Shetty - Last Filed: 12/07/17 07:44> - Objective Vital Signs & Weight: Vital Signs (12 hours) Temp Pulse Resp BP Pulse Ox 12/07/17 08:00 98.4 F 69 16 97 12/07/17 07:19 98.4 F 69 16 135/66 97 12/07/17 00:22 85 18 166/76 H Weight Admit Weight 63.049 kg Weight 63.049 kg I&O: 12/06/17 12/07/17 12/08/17 06:59 06:59 06:59 Intake Total 120 1141.4 Output Total 600 Balance -480 1141.4 Result Diagrams: 12/04/17 09:05 12/07/17 03:21 <Shaji Friedman - Last Filed: 12/07/17 11:50> Phys Exam - Physical Examination Constitutional: NAD patient refused exam but appears comfortable no increased work of breathing <Malena Shetty - Last Filed: 12/07/17 07:44> Dx/Plan (1) Psychosis Status: Acute (2) Protein calorie malnutrition Code(s): E46 - UNSPECIFIED PROTEIN-CALORIE MALNUTRITION Status: Acute (3) Dehydration Code(s): E86.0 - DEHYDRATION Status: Acute (4) Diastolic CHF, chronic Code(s): I50.32 - CHRONIC DIASTOLIC (CONGESTIVE) HEART FAILURE Status: Chronic (5) HTN (hypertension) Code(s): I10 - ESSENTIAL (PRIMARY) HYPERTENSION Status: Chronic (6) Physical deconditioning Code(s): R53.81 - OTHER MALAISE Status: Acute (7) MARY (acute kidney injury) Code(s): N17.9 - ACUTE KIDNEY FAILURE, UNSPECIFIED Status: Resolved (8) Hypokalemia Code(s): E87.6 - HYPOKALEMIA Status: Resolved (9) History of CVA (cerebrovascular accident) Code(s): Z86.73 - PRSNL HX OF TIA (TIA), AND CEREB INFRC W/O RESID DEFICITS Status: Acute - Plan Plan: 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 Family does report steady decline in mentation with dementia, although this is definitely an acute change from baseline dementia. Infection has been ruled out, no signs of CVA or hemorrhage on CT head. Patient does have hx of CVA which could be a cause of psychosis but likely patient will not be compliant with MRI. Will speak with family and MPOA to determine if they want to pursue MRI. -Continue IV haldol for psychosis -Sitter -Fall Precautions -MHMR was consulted, but unable to do anything -CM consulted to attempt to get the patient in an inpatient allie psych unit Dehydration The patient has not been eating or drinking for the past week. Her MARY has improved and hydration status improved after fluids. -Will give fluids intermittently as being connected to the IV exacerbates agitation and psychosis -Dietitian consult Protein Calorie Malnutrition -dietitian recommends reg diet and ensure -consider appetite stimulant although patient refusing PO medications at this time HTN -refusing home meds -placed clonidine patch yesterday. BP much improved. Continue HFpEF Most recent Echo earlier this month showed EF 50-55% with Grade I/III diastolic dysfunction -Will avoid fluid overload, but patient is clinically dry and needs to be rehydrated -Strict I/O's Osteoporosis Patient has had multiple falls and fractures. She has a non-healed proximal humerus fx on the R -Fall precautions -Sitter Hypokalemia, resolved K 2.9 initially, s/p 40mEq KCl in the ED. Mag WNL. Her K is now WNL -Will replete as needed MARY, resolved Initial GFR 40 with BUN 19 and Cr 1.25, this has improved with IV hydration. Dispo: unable to determine exact cause of psychosis. Treatment is difficult due to patients refusal. Consider placement in [facility] unit. <Malena Shetty - Last Filed: 12/07/17 07:44> Attending Addendum - Attending Addendum Date/Time: 12/07/17 6440 I personally evaluated the patient and discussed the management with Dr. Shetty I agree with the History, Examination, Assessment and Plan documented above with any addition or exceptions noted below. Family aware of gravity of illness patient sedated still refusing to eat or allow physical exam hoping to transition to oral rx, BP managed with clonodine patch.Encourage po intake and family inquiring about hospice options. Not having success for transfer to geropsychiatric unit. Family prefers locally [facility] and/or [facility]. Patient remains with IV for RX access, fluids and some caloric supplementation. <Shaji Friedman - Last Filed: 12/07/17 11:50>
[2017-12-07] MEDS: buPROPion HCl 100 MG TAB PO SCH (09:14)
[2017-12-07] MEDS: Losartan 25 MG TAB PO SCH (09:14)
[2017-12-07] MEDS: risperiDONE 0.25 MG TAB PO SCH (21:20)
[2017-12-07] MEDS: Enalaprilat Dihydrate 1.25 MG/ML VIAL SLOW IVP SCH (23:55)
[2017-12-08] MEDS: Haloperidol Lactate 5 MG/ML VIAL SLOW IVP SCH ×7 (02:07→18:19)
[2017-12-08] MEDS: Enalaprilat Dihydrate 1.25 MG/ML VIAL SLOW IVP SCH (05:53)
--- NOTE | 2017-12-08 07:40 | PDOC.FM ---
- Subjective Subjective: Patient is resting comfortably this morning. She is more cooperative this morning. She is refusing breakfast but did eat a hamburger from [employer] brought by family yesterday and did take Risperdal last night. Nurse reports she has been using bedside commode since her admission, but overnight started using bedpan and having some incontinence. She is no longer getting up. During our conversation this morning, her eyes remain closed and her answers are short. She denies pain. She did have an elevated blood pressure that was 200's systolic, in which Vasotec was given. Repeat BP when I was seeing her was 150's systolic. - Objective MAR Reviewed: Yes Vital Signs & Weight: Vital Signs (12 hours) Temp Pulse Resp BP BP Pulse Ox 12/08/17 05:53 199/87 H 12/08/17 04:14 74 16 151/76 H 12/08/17 00:35 79 16 190/91 H 12/07/17 23:55 76 207/100 H 207/100 H 12/07/17 21:35 205/85 H 12/07/17 21:20 86 222/94 H 95 12/07/17 20:00 98.1 F 83 18 Weight Admit Weight 63.049 kg Weight 63.049 kg I&O: 12/07/17 12/08/17 12/09/17 06:59 06:59 06:59 Intake Total 1141.4 2374 Output Total 300 Balance 1141.4 2074 Result Diagrams: 12/04/17 09:05 12/07/17 03:21 <Malena Shetty - Last Filed: 12/08/17 07:36> - Objective Vital Signs & Weight: Vital Signs (12 hours) Temp Pulse Resp BP BP Pulse Ox 12/08/17 15:41 147/82 H 12/08/17 09:05 98.5 F 66 16 97 12/08/17 09:00 98.5 F 66 14 153/76 H 97 12/08/17 05:53 199/87 H Weight Admit Weight 63.049 kg Weight 63.049 kg I&O: 12/07/17 12/08/17 12/09/17 06:59 06:59 06:59 Intake Total 1141.4 2374 1116 Output Total 300 400 Balance 1141.4 2074 716 Result Diagrams: 12/04/17 09:05 12/07/17 03:21 <Shaji Friedman - Last Filed: 12/08/17 17:34> Phys Exam - Physical Examination Constitutional: NAD Patient more cooperative. Allows me to do minimal exam. dry MM Respiratory: clear to auscultation bilateral Cardiovascular: RRR systolic murmur Musculoskeletal: no edema Deviation from normal: drowsy, continues to be paranoid, refusing to eat <Malena Shetty - Last Filed: 12/08/17 07:36> Dx/Plan (1) Psychosis Status: Acute (2) Protein calorie malnutrition Code(s): E46 - UNSPECIFIED PROTEIN-CALORIE MALNUTRITION Status: Acute (3) Dehydration Code(s): E86.0 - DEHYDRATION Status: Acute (4) Diastolic CHF, chronic Code(s): I50.32 - CHRONIC DIASTOLIC (CONGESTIVE) HEART FAILURE Status: Chronic (5) HTN (hypertension) Code(s): I10 - ESSENTIAL (PRIMARY) HYPERTENSION Status: Chronic (6) Physical deconditioning Code(s): R53.81 - OTHER MALAISE Status: Acute (7) MARY (acute kidney injury) Code(s): N17.9 - ACUTE KIDNEY FAILURE, UNSPECIFIED Status: Resolved (8) Hypokalemia Code(s): E87.6 - HYPOKALEMIA Status: Resolved (9) History of CVA (cerebrovascular accident) Code(s): Z86.73 - PRSNL HX OF TIA (TIA), AND CEREB INFRC W/O RESID DEFICITS Status: Acute - Plan Plan: 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 Family does report steady decline in mentation with dementia, although this is definitely an acute change from baseline dementia. Infection has been ruled out, no signs of CVA or hemorrhage on CT head. Patient does have hx of vascular dementia and high risk for CVA which could be a cause of psychosis but likely patient will not be compliant with MRI. Family does not wish to pursue this option. They understand she is at the end of her life and would like placement in a facility and/or hospice. -Continue IV haldol for psychosis -Fall Precautions -MHMR was consulted, but unable to do anything -CM consulted to attempt to get the patient in an inpatient allie psych unit Dehydration The patient has not been eating or drinking for the past week. Her MARY has improved and hydration status improved after fluids. -Will give fluids intermittently as being connected to the IV exacerbates agitation and psychosis -Dietitian consult Protein Calorie Malnutrition -dietitian recommends reg diet and ensure -consider appetite stimulant although patient refusing PO medications at this time HTN -refusing home meds -Clonidine patch in place. To be changed on 11/13 -Vasotec added, will continue to monitor HFpEF Most recent Echo earlier this month showed EF 50-55% with Grade I/III diastolic dysfunction -Will avoid fluid overload, but patient is clinically dry and needs to be rehydrated -Strict I/O's Osteoporosis Patient has had multiple falls and fractures. She has a non-healed proximal humerus fx on the R -Fall precautions Hypokalemia, resolved K 2.9 initially, s/p 40mEq KCl in the ED. Mag WNL. Her K is now WNL -Will replete as needed MARY, resolved Initial GFR 40 with BUN 19 and Cr 1.25, this has improved with IV hydration. Dispo: unable to determine exact cause of psychosis. Treatment is difficult due to patients refusal. Consider placement in [facility] unit vs inpatient hospice per family wishes. <Malena Shetty - Last Filed: 12/08/17 07:36> Attending Addendum - Attending Addendum Date/Time: 12/08/17 1723 I personally evaluated the patient and discussed the management with Dr. Shetty I agree with the History, Examination, Assessment and Plan documented above with any addition or exceptions noted below. Patient took minimal amount po yesterday still refusing po rx intermittently plan to transition po RX attempt streamline RX: risperdal 1 mg po bid ,d,c megace and bupropion and RX remeron qhs , continue scheduled i.v. haldol and decrease interval until able to reliably adminiister po rx, BP labile hoping to avoid relative hypotension in setting of vascular dementia. Clonidine patch titrate as needed and plan to obtain hospice and tranfer to either [facility] or [facility] hospice if patient continued to refuse po RX. Have been able to maintain IV. <Shaji Friedman - Last Filed: 12/08/17 17:34>
[2017-12-08] MEDS: risperiDONE 0.25 MG TAB PO SCH ×2 (09:25→09:38)
[2017-12-08] MEDS: Dextrose 5%-Lactated Ringers 1,000 ML IV SCH ×2 (09:25→17:09)
[2017-12-08] MEDS: buPROPion HCl 100 MG TAB PO SCH (09:33)
[2017-12-08] MEDS: Losartan 25 MG TAB PO SCH (09:33)
[2017-12-08] MEDS: Megestrol Acetate 40 MG TAB PO SCH ×2 (09:33→22:28)
[2017-12-08] MEDS: risperiDONE 1 MG TAB PO SCH (22:28)
[2017-12-09] MEDS: Haloperidol Lactate 5 MG/ML VIAL SLOW IVP SCH ×2 (02:11→06:26)
[2017-12-09] MEDS: Dextrose 5%-Lactated Ringers 1,000 ML IV SCH ×2 (04:15→23:38)
--- NOTE | 2017-12-09 06:58 | PDOC.FM ---
- Subjective Subjective: Patient drowsy, but easy to arouse this AM. She slept well overnight. She has no specific complaints this morning except wanting to be left alone. - Objective MAR Reviewed: Yes Vital Signs & Weight: Vital Signs (12 hours) Temp Pulse Resp BP Pulse Ox 12/08/17 20:00 98.6 F 74 20 151/82 H 96 Weight Admit Weight 63.049 kg Weight 63.049 kg I&O: 12/07/17 12/08/17 12/09/17 06:59 06:59 06:59 Intake Total 1141.4 2374 1116 Output Total 300 400 Balance 1141.4 2074 716 Result Diagrams: 12/04/17 09:05 12/07/17 03:21 <Jyoti Montes - Last Filed: 12/09/17 06:56> - Objective Vital Signs & Weight: Vital Signs (12 hours) Temp Pulse Resp BP Pulse Ox 12/09/17 08:00 97.9 F 82 14 146/76 H 96 Weight Admit Weight 63.049 kg Weight 63.049 kg I&O: 12/08/17 12/09/17 12/10/17 06:59 06:59 06:59 Intake Total 2374 2046 Output Total 300 400 Balance 2074 1646 Result Diagrams: 12/04/17 09:05 12/07/17 03:21 <Renetta Jeter - Last Filed: 12/09/17 15:11> Phys Exam - Physical Examination Constitutional: NAD HEENT: moist MMs poor dentition Respiratory: no wheezing, no rales, no rhonchi, clear to auscultation bilateral Cardiovascular: RRR, no significant murmur, no rub Gastrointestinal: soft, non-tender, no distention, positive bowel sounds Musculoskeletal: no edema, pulses present Neurological: non-focal, moves all 4 limbs Deviation from normal: agitated, poor insight, A&Ox1 Skin: normal turgor <Jyoti Montes - Last Filed: 12/09/17 06:56> Dx/Plan (1) Delirium Code(s): R41.0 - DISORIENTATION, UNSPECIFIED Status: Acute (2) Dehydration Code(s): E86.0 - DEHYDRATION Status: Acute (3) MARY (acute kidney injury) Code(s): N17.9 - ACUTE KIDNEY FAILURE, UNSPECIFIED Status: Resolved (4) Hypokalemia Code(s): E87.6 - HYPOKALEMIA Status: Resolved (5) Humerus distal fracture Code(s): S42.409A - UNSP FRACTURE OF LOWER END OF UNSP HUMERUS, INIT FOR CLOS FX Status: Chronic QualifierTitle: Encounter type: subsequent encounter Fracture type: closed Fracture morphology: unspecified fracture morphology Laterality: right Fracture healing: with delayed healing Qualified Code(s): S42.401G - Unspecified fracture of lower end of right humerus, subsequent encounter for fracture with delayed healing (6) Diastolic CHF, chronic Code(s): I50.32 - CHRONIC DIASTOLIC (CONGESTIVE) HEART FAILURE Status: Chronic (7) Essential (primary) hypertension Code(s): I10 - ESSENTIAL (PRIMARY) HYPERTENSION Status: Acute (8) Hyperlipidemia Code(s): E78.5 - HYPERLIPIDEMIA, UNSPECIFIED Status: Acute QualifierTitle: Hyperlipidemia type: unspecified Qualified Code(s): E78.5 - Hyperlipidemia, unspecified - Plan Plan: 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 Family does report steady decline in mentation with dementia, although this is definitely an acute change from baseline dementia. Infection has been ruled out, no signs of CVA or hemorrhage on CT head. Patient does have hx of vascular dementia and high risk for CVA which could be a cause of psychosis but likely patient will not be compliant with MRI. Family does not wish to pursue this option. They understand she is at the end of her life and would like placement in a facility and/or hospice. -Continue IV haldol for psychosis -Risperidone has been started in an attempt to control the patient's psychosis on PO medication, however the patient refused last night's dose. -Fall Precautions -MHMR was consulted, but unable to do anything -CM consulted to attempt to get the patient in an inpatient micheline psych unit Dehydration The patient has not been eating or drinking for the past week. Her MARY has improved and hydration status improved after fluids. -Will give fluids intermittently as being connected to the IV exacerbates agitation and psychosis -Dietitian consult Protein Calorie Malnutrition -dietitian recommends reg diet and ensure -consider appetite stimulant although patient refusing PO medications at this time HTN refusing home meds -Clonidine patch in place. To be changed on 11/13 -Vasotec added, will continue to monitor HFpEF Most recent Echo earlier this month showed EF 50-55% with Grade I/III diastolic dysfunction -Will avoid fluid overload, but patient is clinically dry and needs to be rehydrated -Strict I/O's Osteoporosis Patient has had multiple falls and fractures. She has a non-healed proximal humerus fx on the R -Fall precautions Hypokalemia, resolved K 2.9 initially, s/p 40mEq KCl in the ED. Mag WNL. Her K is now WNL -Will replete as needed MARY, resolved Initial GFR 40 with BUN 19 and Cr 1.25, this has improved with IV hydration. Dispo: unable to determine exact cause of psychosis. Treatment is difficult due to patients refusal. Consider placement in Alzheimer's unit vs inpatient hospice per family wishes. <Jyoti Montes - Last Filed: 12/09/17 06:56> Attending Addendum - Attending Addendum Date/Time: 12/09/17 1510 I personally evaluated the patient and discussed the management with Dr. Montes. I agree with the History, Examination, Assessment and Plan documented above with any addition or exceptions noted below. The patient was awake and answered simple questions. She has refused meds at times. [facility] has spoken with pt and family and will begin following the patient but she is not appropriate for inpatient facility. Waiting to hear from [facility] on possible acceptance. <Renetta Jeter - Last Filed: 12/09/17 15:11>
[2017-12-09] MEDS: buPROPion HCl 100 MG TAB PO SCH ×2 (08:47→12:26)
[2017-12-09] MEDS: Megestrol Acetate 40 MG TAB PO SCH ×3 (08:48→23:37)
[2017-12-09] MEDS: Losartan 25 MG TAB PO SCH ×2 (08:48→12:26)
[2017-12-09] MEDS: risperiDONE 1 MG TAB PO SCH ×2 (11:11→23:38)
[2017-12-09] MEDS ORDERED: Haloperidol Lactate 5 MG/ML VIAL SLOW IVP PRN (11:39)
[2017-12-10] MEDS: Dextrose 5%-Lactated Ringers 1,000 ML IV SCH ×2 (02:45→14:35)
--- NOTE | 2017-12-10 09:09 | PDOC.FM ---
- Subjective Subjective: Patient asleep this AM. Slept well overnight. No complaints. Not eating well. - Objective MAR Reviewed: Yes Vital Signs & Weight: Vital Signs (12 hours) Temp Pulse Resp BP Pulse Ox 12/10/17 07:36 98.7 F 78 20 135/77 95 Weight Admit Weight 63.049 kg Weight 63.049 kg I&O: 12/09/17 12/10/17 12/11/17 06:59 06:59 06:59 Intake Total 2046 1200 Output Total 400 Balance 1646 1200 Result Diagrams: 12/04/17 09:05 12/07/17 03:21 <Jyoti Montes - Last Filed: 12/10/17 09:07> - Objective Vital Signs & Weight: Vital Signs (12 hours) Temp Pulse Resp BP BP Pulse Ox 12/10/17 12:15 69 156/78 H 12/10/17 08:00 98.8 F 82 20 100 12/10/17 07:36 98.7 F 78 20 135/77 95 Weight Admit Weight 63.049 kg Weight 63.049 kg I&O: 12/09/17 12/10/17 12/11/17 06:59 06:59 06:59 Intake Total 2046 1200 Output Total 400 Balance 1646 1200 Result Diagrams: 12/04/17 09:05 12/07/17 03:21 <Renetta Jeter - Last Filed: 12/10/17 18:49> Phys Exam - Physical Examination Constitutional: NAD HEENT: moist MMs poor dentition Respiratory: no wheezing, no rales, no rhonchi, clear to auscultation bilateral Cardiovascular: RRR, no significant murmur, no rub Gastrointestinal: soft, non-tender, no distention, positive bowel sounds Musculoskeletal: no edema, pulses present Deviation from normal: A&Ox1 Skin: normal turgor, cap refill <2 seconds <Jyoti Montes - Last Filed: 12/10/17 09:07> Dx/Plan (1) Delirium Code(s): R41.0 - DISORIENTATION, UNSPECIFIED Status: Acute (2) Dehydration Code(s): E86.0 - DEHYDRATION Status: Acute (3) MARY (acute kidney injury) Code(s): N17.9 - ACUTE KIDNEY FAILURE, UNSPECIFIED Status: Resolved (4) Hypokalemia Code(s): E87.6 - HYPOKALEMIA Status: Resolved (5) Humerus distal fracture Code(s): S42.409A - UNSP FRACTURE OF LOWER END OF UNSP HUMERUS, INIT FOR CLOS FX Status: Chronic QualifierTitle: Encounter type: subsequent encounter Fracture type: closed Fracture morphology: unspecified fracture morphology Laterality: right Fracture healing: with delayed healing Qualified Code(s): S42.401G - Unspecified fracture of lower end of right humerus, subsequent encounter for fracture with delayed healing (6) Diastolic CHF, chronic Code(s): I50.32 - CHRONIC DIASTOLIC (CONGESTIVE) HEART FAILURE Status: Chronic (7) Essential (primary) hypertension Code(s): I10 - ESSENTIAL (PRIMARY) HYPERTENSION Status: Acute (8) Hyperlipidemia Code(s): E78.5 - HYPERLIPIDEMIA, UNSPECIFIED Status: Acute QualifierTitle: Hyperlipidemia type: unspecified Qualified Code(s): E78.5 - Hyperlipidemia, unspecified - Plan Plan: 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 Family does report steady decline in mentation with dementia, although this is definitely an acute change from baseline dementia. Infection has been ruled out, no signs of CVA or hemorrhage on CT head. Patient does have hx of vascular dementia and high risk for CVA which could be a cause of psychosis but likely patient will not be compliant with MRI. Family does not wish to pursue this option. They understand she is at the end of her life and would like placement in a facility and/or hospice. -Continue IV haldol prn for psychosis -Risperidone has been started in an attempt to control the patient's psychosis on PO medication, however the patient was not given dose last night due to being asleep -Fall Precautions -MHMR was consulted, but unable to do anything -CM consulted, plan to d/c today to [facility] on Hospice Dehydration The patient has not been eating or drinking for the past week. Her MARY has improved and hydration status improved after fluids. -Will give fluids intermittently as being connected to the IV exacerbates agitation and psychosis -Dietitian consult Protein Calorie Malnutrition -dietitian recommends reg diet and ensure -consider appetite stimulant although patient refusing PO medications at this time HTN refusing home meds -Clonidine patch in place. To be changed on 11/13 -Vasotec added prn, will continue to monitor HFpEF Most recent Echo earlier this month showed EF 50-55% with Grade I/III diastolic dysfunction -Will avoid fluid overload, but patient is clinically dry and needs to be rehydrated -Strict I/O's Osteoporosis Patient has had multiple falls and fractures. She has a non-healed proximal humerus fx on the R -Fall precautions Hypokalemia, resolved K 2.9 initially, s/p 40mEq KCl in the ED. Mag WNL. Her K is now WNL -Will replete as needed MARY, resolved Initial GFR 40 with BUN 19 and Cr 1.25, this has improved with IV hydration. Dispo: d/c today to [facility] on hospice <Jyoti Montes - Last Filed: 12/10/17 09:07> Attending Addendum - Attending Addendum Date/Time: 12/10/17 2315 I personally evaluated the patient and discussed the management with Dr. Montes. I agree with the History, Examination, Assessment and Plan documented above with any addition or exceptions noted below. Patient has been accepted to [facility] and will d/c with hospice. <Renetta Jeter - Last Filed: 12/10/17 18:49>
[2017-12-10 12:15] VITALS: BP 156/78; TEMP 98.8
[2017-12-10] MEDS: Megestrol Acetate 40 MG TAB PO SCH (14:35)
[2017-12-10] MEDS: risperiDONE 1 MG TAB PO SCH (14:35)
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
--- NOTE | 2018-02-01 16:33 | EKG ---
Test Reason : Blood Pressure : / mmHG Vent. Rate : 087 BPM Atrial Rate : 087 BPM P-R Int : 156 ms QRS Dur : 102 ms QT Int : 384 ms P-R-T Axes : 000 -27 047 degrees QTc Int : 462 ms Normal sinus rhythm Left ventricular hypertrophy with repolarization abnormality Abnormal ECG Confirmed by JOAO MARTINEZ M.D. ([id number]), content editor BRIAN WHITLEY ([id number]) on 02/01/2018 4:32:51 PM Referred By: Confirmed By:JOAO MARTINEZ M.D.
== END 2017-12-10 14:10 | DRG 884 ==
LOC: ERS 19:33 → T4-A 22:36 → OBSVTOIN 12-04 11:52
PROVIDERS: ADMIT Internal Medicine; ATTEND Internal Medicine
DX: F03.91 Unspecified dementia, unspecified severity, with behavioral disturbance (principal); N17.9 Acute kidney failure, unspecified; E46 Unspecified protein-calorie malnutrition; I50.32 Chronic diastolic (congestive) heart failure; I11.0 Hypertensive heart disease with heart failure; E86.0 Dehydration; E87.6 Hypokalemia; M81.0 Age-related osteoporosis without current pathological fracture; Z51.5 Encounter for palliative care; Z66 Do not resuscitate; E78.2 Mixed hyperlipidemia; S42.401G Unspecified fracture of lower end of right humerus, subsequent encounter for fracture with delayed healing; Z68.22 Body mass index [BMI] 22.0-22.9, adult; Z86.73 Personal history of transient ischemic attack (TIA), and cerebral infarction without residual deficits; Z88.2 Allergy status to sulfonamides; Z79.82 Long term (current) use of aspirin; Z79.899 Other long term (current) drug therapy; Z95.0 Presence of cardiac pacemaker; X58.XXXD Exposure to other specified factors, subsequent encounter
CPT/HCPCS: 36415; 51701; 70450; 71045; 80048; 80053; 81003; 82553; 83735; 83880; 84443; 84484; 85025; 87040; 93005; 93010; A4353; G8978-GP-CL; G8979-GP-CJ; G8987-GO-CK; G8988-GO-CK; G8989-GO-CK; J1630; J1650; J3480; J7042; S0179